=== PATIENT | female | born 1930 | race Two or more races ===

== ENCOUNTER 2017-03-28 12:24 | Inpatient (IN) | payer OTHER, MEDICAID ==
[~2017-03-28] VITALS: Ht 149.9 cm; Wt 45.4 kg
[2017-03-28] MEDS ORDERED: METOPROLOL SUCC50 MG ORAL (12:38)
[2017-03-28] MEDS ORDERED: ASPIR 8181 MG ORAL (12:38)
[2017-03-28] MEDS ORDERED: ATORVASTATIN CA40 MG ORAL (12:38)
[2017-03-28] MEDS ORDERED: HYDRALAZINE HC100 MG ORAL (12:38)
[2017-03-28] MEDS ORDERED: DIOVAN320 MG ORAL (12:38)
[2017-03-28] MEDS ORDERED: AZITHROMYCIN600 MG ORAL (12:38)
[2017-03-28] MEDS ORDERED: VENTOLIN HFA18 GM INH (12:38)
[2017-03-28 13:39] VITALS: BP 165/48
--- NOTE | 2017-03-28 13:48 | Diagnostic Imaging Report ---
Indication: Chest pain Technique: One view of the chest Comparison: none Findings: The heart is enlarged. There is equivocal mild interstitial congestion. No focal airspace consolidation. No effusion Impression: Cardiomegaly. Equivocal mild interstitial congestion-correlate clinically
[2017-03-28 13:57] LABS: APPEARANCE,URINE CLEAR; BILIRUBIN, URINE NEGATIVE (NEGATIVE); GLUCOSE, URINE (UA) NEGATIVE (NEGATIVE); KETONES,URINE 1+ (NEGATIVE); LEUKOCYTE ESTERASE ,URINE 1+ (NEGATIVE); NITRITE,URINE NEGATIVE (NEGATIVE); PH,URINE 6 (4.5-8.0); PROTEIN,URINE 4+ (NEGATIVE); UROBILINOGEN,URINE NORMAL MG/DL (0.0-1.0)
[2017-03-28 13:59] LABS: COLOR,URINE YELLOW
[2017-03-28 14:02] LABS: HEMATOCRIT 37.1 % (37.0-47.0); HEMOGLOBIN 12.6 G/DL (12.0-16.0); MEAN CORPUSCULAR VOLUME 88 FL (80-99); PLATELET COUNT 221 K/UL (150-450); RED CELL DISTRIBUTION WIDTH 11.8 % (11.6-14.8); WHITE BLOOD COUNT 2.1 K/UL (4.8-10.8)
[2017-03-28 14:14] LABS: ANION GAP 7 mmol/L (5-15); BLOOD UREA NITROGEN 13 mg/dL (7-18); CALCIUM 8.7 MG/DL (8.5-10.1); CARBON DIOXIDE 26 MMOL/L (21-32); CHLORIDE 89 MMOL/L (98-107); CREATININE 0.9 MG/DL (0.55-1.30); POTASSIUM 3.5 MMOL/L (3.5-5.1); SODIUM 122 MMOL/L (136-145)
[2017-03-28 14:21] LABS: ALANINE AMINOTRANSFERASE 39 U/L (12-78); ALBUMIN 3.5 G/DL (3.4-5.0); ALBUMIN/GLOBULIN RATIO 0.7 (1.0-2.7); ALKALINE PHOSPHATASE 81 U/L (46-116); ASPARTATE AMINO TRANSFERASE 58 U/L (15-37); BILIRUBIN,TOTAL 0.5 MG/DL (0.2-1.0); CREATINE KINASE 151 U/L (26-308)
[2017-03-28 14:40] VITALS: BP 166/45
[2017-03-28 14:42] LABS: CKMB 0.9 NG/ML (0.0-3.6)
[2017-03-28 16:00] VITALS: BP 159/54
--- NOTE | 2017-03-28 16:23 | Emergency Room Report ---
History of Present Illness General Chief Complaint: General Complaint Source: Patient, Family Member Present Illness HPI 86-year-old female presents ED for evaluation. Presenting with cough and congestion times one week. Feeling weak. Denies fevers or chills. Denies chest pain. Feel short of breath at times. Denies leg swelling. Denies sick contacts or recent travel. No other aggravating or relieving factors. Denies any other associated symptoms Allergies: Coded Allergies: PENICILLINS (Verified Allergy, Unknown, 03/28/17) Patient History Past Medical History: HTN, asthma Past Surgical History: none Pertinent Family History: none Social History: Denies: smoking, alcohol use, drug use Now: No Immunizations: UTD Reviewed Nursing Documentation: PMH: Agreed, PSxH: Agreed Nursing Documentation-PMH Hx Hypertension: Yes Hx Asthma: Yes Review of Systems All Other Systems: negative except mentioned in HPI Physical Exam Vital Signs Date Time Temp Pulse Resp B/P (MAP) Pulse Ox O2 Delivery O2 Flow Rate FiO2 03/28/17 12:31 99.0 62 18 150/64 96 Room Air Sp02 EP Interpretation: reviewed, normal General Appearance: no apparent distress, alert, GCS 15, non-toxic Head: normocephalic Eyes: bilateral eye normal inspection, bilateral eye PERRL ENT: normal ENT inspection Neck: normal inspection Respiratory: crackles Cardiovascular #1: regular rate, rhythm, no edema Gastrointestinal: normal bowel sounds, non tender, soft, non-distended, no guarding, no rebound Rectal: deferred Genitourinary: no CVA tenderness Musculoskeletal: normal inspection Neurologic: alert, oriented x3, responsive, motor strength/tone normal, sensory intact, speech normal Psychiatric: normal inspection Skin: normal inspection Lymphatic: normal inspection Medical Decision Making Diagnostic Impression: Primary Impression: Hyponatremia Additional Impressions: CHF (congestive heart failure) Qualified Codes: I50.9 - Heart failure, unspecified Elevated troponin Leukopenia Qualified Codes: D72.819 - Decreased white blood cell count, unspecified ER Course Hospital Course 86-year-old female presents ED complaining of shortness of breath, cough, congestion Differential diagnoses include: IL/unstable angina, contusion, muscle strain, PTX, rib fracture Clinical course Patient placed on stretcher. on cardiac monitor technician. After initial history and physical I ordered labs, EKG, chest x-ray labs reviewed- leukopenia noted, hemoglobin/hematocrit stable, troponins 0.452, BNP elevated, Na 122 EKG - NSR, no acute ischemic changes interpreted by me Chest x-ray- pulmonary congestion She denies chest pain. Aspirin given. Antibiotics given. Lasix given. Case discussed with Dr. Montes De Oca and he agreed to accept the patient to his service for further care and support I. I feel this is a highly complex case requiring extensive working including EKG/Rhythm strip, Xray/CT/US, Blood/urine lab work, repeat exams while in ED, and administration of strong opiates/narcotics for pain control, admission to hospital or close patient follow up. Diagnosis - hyponatremia, CHF, elevated troponin, leukopenia admitted to telemetry in serious condition Labs Test 03/28/17 13:15 03/28/17 13:25 Urine Color Yellow Urine Appearance Clear Urine pH 6 (4.5-8.0) Urine Specific [place] 1.020 (1.005-1.035) Urine Protein 4+ (NEGATIVE) Urine Glucose (UA) Negative (NEGATIVE) Urine Ketones 1+ (NEGATIVE) Urine Occult Blood Negative (NEGATIVE) Urine Nitrite Negative (NEGATIVE) Urine Bilirubin Negative (NEGATIVE) Urine Urobilinogen Normal MG/DL (0.0-1.0) Urine Leukocyte Esterase 1+ (NEGATIVE) Urine RBC 0-2 /HPF (0 - 2) Urine WBC 2-4 /HPF (0 - 2) Urine Squamous Epithelial Cells Few /LPF (NONE/OCC) Urine Bacteria Occasional /HPF (NONE) Urine Mucus Few /LPF (NONE/OCC) White Blood Count 2.1 K/UL (4.8-10.8) Red Blood Count 4.20 M/UL (4.20-5.40) Hemoglobin 12.6 G/DL (12.0-16.0) Hematocrit 37.1 % (37.0-47.0) Mean Corpuscular Volume 88 FL (80-99) Mean Corpuscular Hemoglobin 29.9 PG (27.0-31.0) Mean Corpuscular Hemoglobin Concent 33.8 G/DL (32.0-36.0) Red Cell Distribution Width 11.8 % (11.6-14.8) Platelet Count 221 K/UL (150-450) Mean Platelet Volume 5.6 FL (6.5-10.1) Neutrophils (%) (Auto) % (45.0-75.0) Lymphocytes (%) (Auto) % (20.0-45.0) Monocytes (%) (Auto) % (1.0-10.0) Eosinophils (%) (Auto) % (0.0-3.0) Basophils (%) (Auto) % (0.0-2.0) Differential Total Cells Counted 100 Neutrophils % (Manual) 49 % (45-75) Lymphocytes % (Manual) 44 % (20-45) Monocytes % (Manual) 7 % (1-10) Eosinophils % (Manual) 0 % (0-3) Basophils % (Manual) 0 % (0-2) Band Neutrophils 0 % (0-8) Platelet Estimate Adequate Platelet Morphology Normal Red Blood Cell Morphology Hypochromasia 1+ Sodium Level 122 MMOL/L (136-145) Potassium Level 3.5 MMOL/L (3.5-5.1) Chloride Level 89 MMOL/L (98-107) Carbon Dioxide Level 26 MMOL/L (21-32) Anion Gap 7 mmol/L (5-15) Blood Urea Nitrogen 13 mg/dL (7-18) Creatinine 0.9 MG/DL (0.55-1.30) Estimat Glomerular Filtration Rate mL/min (>60) Glucose Level 110 MG/DL (74-106) Lactic Acid Level 1.40 mmol/L (0.66-2.22) Calcium Level 8.7 MG/DL (8.5-10.1) Total Bilirubin 0.5 MG/DL (0.2-1.0) Aspartate Amino Transf (AST/SGOT) 58 U/L (15-37) Alanine Aminotransferase (ALT/SGPT) 39 U/L (12-78) Alkaline Phosphatase 81 U/L (46-116) Total Creatine Kinase 151 U/L (26-308) Creatine Kinase MB 0.9 NG/ML (0.0-3.6) Creatine Kinase MB Relative Index 0.5 Troponin I 0.452 ng/mL (0.000-0.056) Pro-B-Type Natriuretic Peptide 55941 pg/mL (0-125) Total Protein 8.4 G/DL (6.4-8.2) Albumin 3.5 G/DL (3.4-5.0) Globulin 4.9 g/dL Albumin/Globulin Ratio 0.7 (1.0-2.7) Lipase 308 U/L (73-393) EKG Diagnostic Results Rate: normal Rhythm: NSR ST Segments: no acute changes ASA given to the pt in ED: Yes Rhythm Strip Diag. Results EP Interpretation: yes Rhythm: NSR, no PVC's, no ectopy Chest X-Ray Diagnostic Results Chest X-Ray Diagnostic Results : Chest X-Ray Ordered: Yes # of Views/Limited/Complete: 1 View Indication: Shortness of Breath EP Interpretation: Yes Interpretation: no pneumothorax, other - cardiomegaly. interstitial congestion Impression: Other - cardiomegaly. chf Electronically Signed by: Electronically signed by Luis Armando Paige MD Last Vital Signs Date Time Temp Pulse Resp B/P (MAP) Pulse Ox O2 Delivery O2 Flow Rate FiO2 03/28/17 14:40 97.6 57 12 166/45 99 Room Air Status: improved Disposition: ADMITTED INPATIENT Condition: Serious Referrals: NON PHYSICIAN (PCP) LUIS ARMANDO PAIGE M.D. Mar 28, 2017 16:23
--- NOTE | 2017-03-28 16:39 | History & Physical ---
History and Physical History & Physicial 86-year-old female presents with cough and congestion times one week. Patient Feeling weak. Denies fevers or chills. Denies chest pain. She notes some short of breath at times. Denies leg swelling. Denies sick contacts or recent travel. No other aggravating or relieving factors. Denies any other associated symptoms Allergies: PENICILLINS (Verified Allergy, Unknown, 03/28/17) Past Medical History: HTN, asthma Past Surgical History: none Pertinent Family History: none Social History: Denies: smoking, alcohol use, drug use Reviewed of systems: reviewed Physical WDWN NAD some rhonchi bilaterally with reduced breath sounds [id number] without MRG NABS nontender no HSM no CCE nonfocal Labs Test 03/28/17 13:15 03/28/17 13:25 Urine Color Yellow Urine Appearance Clear Urine pH 6 (4.5-8.0) Urine Specific [place] 1.020 (1.005-1.035) Urine Protein 4+ (NEGATIVE) Urine Glucose (UA) Negative (NEGATIVE) Urine Ketones 1+ (NEGATIVE) Urine Occult Blood Negative (NEGATIVE) Urine Nitrite Negative (NEGATIVE) Urine Bilirubin Negative (NEGATIVE) Urine Urobilinogen Normal MG/DL (0.0-1.0) Urine Leukocyte Esterase 1+ (NEGATIVE) Urine RBC 0-2 /HPF (0 - 2) Urine WBC 2-4 /HPF (0 - 2) Urine Squamous Epithelial Cells Few /LPF (NONE/OCC) Urine Bacteria Occasional /HPF (NONE) Urine Mucus Few /LPF (NONE/OCC) White Blood Count 2.1 K/UL (4.8-10.8) Red Blood Count 4.20 M/UL (4.20-5.40) Hemoglobin 12.6 G/DL (12.0-16.0) Hematocrit 37.1 % (37.0-47.0) Mean Corpuscular Volume 88 FL (80-99) Mean Corpuscular Hemoglobin 29.9 PG (27.0-31.0) Mean Corpuscular Hemoglobin Concent 33.8 G/DL (32.0-36.0) Red Cell Distribution Width 11.8 % (11.6-14.8) Platelet Count 221 K/UL (150-450) Mean Platelet Volume 5.6 FL (6.5-10.1) Neutrophils (%) (Auto) % (45.0-75.0) Lymphocytes (%) (Auto) % (20.0-45.0) Monocytes (%) (Auto) % (1.0-10.0) Eosinophils (%) (Auto) % (0.0-3.0) Basophils (%) (Auto) % (0.0-2.0) Differential Total Cells Counted 100 Neutrophils % (Manual) 49 % (45-75) Lymphocytes % (Manual) 44 % (20-45) Monocytes % (Manual) 7 % (1-10) Eosinophils % (Manual) 0 % (0-3) Basophils % (Manual) 0 % (0-2) Band Neutrophils 0 % (0-8) Platelet Estimate Adequate Platelet Morphology Normal Red Blood Cell Morphology Hypochromasia 1+ Sodium Level 122 MMOL/L (136-145) Potassium Level 3.5 MMOL/L (3.5-5.1) Chloride Level 89 MMOL/L (98-107) Carbon Dioxide Level 26 MMOL/L (21-32) Anion Gap 7 mmol/L (5-15) Blood Urea Nitrogen 13 mg/dL (7-18) Creatinine 0.9 MG/DL (0.55-1.30) Estimat Glomerular Filtration Rate mL/min (>60) Glucose Level 110 MG/DL (74-106) Lactic Acid Level 1.40 mmol/L (0.66-2.22) Calcium Level 8.7 MG/DL (8.5-10.1) Total Bilirubin 0.5 MG/DL (0.2-1.0) Aspartate Amino Transf (AST/SGOT) 58 U/L (15-37) Alanine Aminotransferase (ALT/SGPT) 39 U/L (12-78) Alkaline Phosphatase 81 U/L (46-116) Total Creatine Kinase 151 U/L (26-308) Creatine Kinase MB 0.9 NG/ML (0.0-3.6) Creatine Kinase MB Relative Index 0.5 Troponin I 0.452 ng/mL (0.000-0.056) Pro-B-Type Natriuretic Peptide 23737 pg/mL (0-125) Total Protein 8.4 G/DL (6.4-8.2) Albumin 3.5 G/DL (3.4-5.0) Globulin 4.9 g/dL Albumin/Globulin Ratio 0.7 (1.0-2.7) Lipase 308 U/L (73-393) IMPRESSION Hyponatremia cardiomegaly leukopenia pulmonary congestion PLAN iv hydration iv antibiotics monitor WBC tylenol follow up labs impression, plan, and exam edited and reviewed in detail care discussed with BILLY TRUJILLO Mar 28, 2017 16:39
[2017-03-28] MEDS ORDERED: cefTRIAXone 1 GM in D5W 55 ML IVPB SCH (16:45)
[2017-03-28 17:50] VITALS: BP 137/83
[2017-03-28 20:00] VITALS: BP 160/73
[2017-03-28] MEDS: Albuterol ud Inhalation HHN SCH (20:06)
[2017-03-28] MEDS: Heparin 5000 units/ml inj SUBQ SCH (20:46)
[2017-03-28] MEDS: Atorvastatin 80mg tab ORAL SCH (20:52)
[2017-03-29] VITALS: BP 138/54
[2017-03-29] MEDS: Albuterol ud Inhalation HHN SCH ×7 (00:04→23:19)
[2017-03-29 04:00] VITALS: BP 142/64
[2017-03-29 08:00] VITALS: BP 136/66
[2017-03-29] MEDS: Aspirin EC 81mg tab ORAL SCH (08:17)
[2017-03-29] MEDS: Metoprolol Succinate XL 50mg tab ORAL SCH (08:18)
--- NOTE | 2017-03-29 08:21 | General Progress Note ---
Assessment/Plan Assessment/Plan IMPRESSION Hyponatremia cardiomegaly leukopenia pulmonary congestion influenza + PLAN monitor sodium tamiflu isolation iv hydration iv antibiotics monitor WBC tylenol follow up labs impression, plan, and exam Subjective Allergies: Coded Allergies: INFLUENZA VIRUS VACCINES (Verified Allergy, Intermediate, 03/29/17) Pt. states, "I always end up getting the flu every time I take a flu vaccine." PENICILLINS (Verified Allergy, Unknown, 03/28/17) Subjective flu positive Objective Last 24 Hour Vital Signs Date Time Temp Pulse Resp B/P (MAP) Pulse Ox O2 Delivery O2 Flow Rate FiO2 03/29/17 08:18 73 136/66 03/29/17 08:00 98.2 73 18 136/66 97 Room Air 03/29/17 07:46 72 16 95 Room Air 21 03/29/17 04:00 61 16 98 Room Air 21 03/29/17 04:00 96.8 65 18 142/64 97 Room Air 03/29/17 04:00 60 16 94 Room Air 21 03/29/17 04:00 64 03/29/17 00:07 60 16 Room Air 21 03/29/17 00:00 63 16 97 Room Air 21 03/29/17 00:00 58 03/29/17 00:00 96.6 58 18 138/54 98 Room Air 03/29/17 00:00 58 16 95 Room Air 21 03/28/17 20:00 60 16 97 Room Air 21 03/28/17 20:00 97.4 56 19 160/73 96 Room Air 03/28/17 20:00 53 03/28/17 20:00 62 16 98 Room Air 21 03/28/17 17:50 98.2 95 19 137/83 97 03/28/17 17:27 57 03/28/17 17:00 65 16 136/52 99 Room Air 03/28/17 14:40 97.6 57 12 166/45 99 Room Air 03/28/17 13:39 98.6 65 12 165/48 99 Room Air 03/28/17 13:15 65 12 Room Air 03/28/17 12:31 99.0 62 18 150/64 96 Room Air Intake and Output 03/28/17 03/29/17 19:00 07:00 Intake Total 30 ml 1183 ml Output Total 300 ml Balance 30 ml 883 ml Intake IV Total 30 ml 1183 ml Output Urine Total 300 ml # Voids 1 Laboratory Tests 03/28/17 13:15: Urine Color Yellow, Urine Appearance Clear, Urine pH 6, Urine Specific [place] 1.020, Urine Protein 4+H, Urine Glucose (UA) Negative, Urine Ketones 1+H, Urine Occult Blood Negative, Urine Nitrite Negative, Urine Bilirubin Negative, Urine Urobilinogen Normal, Urine Leukocyte Esterase 1+H, Urine RBC 0-2, Urine WBC 2-4 , Urine Squamous Epithelial Cells Few, Urine Bacteria Occasional, Urine Mucus FewH 03/28/17 13:25: White Blood Count 2.1*L, Red Blood Count 4.20, Hemoglobin 12.6, Hematocrit 37.1 , Mean Corpuscular Volume 88, Mean Corpuscular Hemoglobin 29.9, Mean Corpuscular Hemoglobin Concent 33.8, Red Cell Distribution Width 11.8, Platelet Count 221, Mean Platelet Volume 5.6L, Neutrophils (%) (Auto) , Lymphocytes (%) ( Auto) , Monocytes (%) (Auto) , Eosinophils (%) (Auto) , Basophils (%) (Auto) , Differential Total Cells Counted 100, Neutrophils % (Manual) 49, Lymphocytes % ( Manual) 44, Monocytes % (Manual) 7, Eosinophils % (Manual) 0, Basophils % ( Manual) 0, Band Neutrophils 0, Platelet Estimate Adequate, Platelet Morphology Normal, Red Blood Cell Morphology , Hypochromasia 1+, Sodium Level 122L, Potassium Level 3.5, Chloride Level 89L, Carbon Dioxide Level 26, Anion Gap 7, Blood Urea Nitrogen 13, Creatinine 0.9, Estimat Glomerular Filtration Rate , Glucose Level 110H, Lactic Acid Level 1.40, Calcium Level 8.7, Total Bilirubin 0.5, Aspartate Amino Transf (AST/SGOT) 58H, Alanine Aminotransferase (ALT/SGPT) 39, Alkaline Phosphatase 81, Total Creatine Kinase 151, Creatine Kinase MB 0.9, Creatine Kinase MB Relative Index 0.5, Troponin I 0.452H, Pro-B-Type Natriuretic Peptide 77744G, Total Protein 8.4H, Albumin 3.5, Globulin 4.9, Albumin/Globulin Ratio 0.7L, Lipase 308 Height (Feet): 4 Height (Inches): 11.00 Weight (Pounds): 100 Objective WDWN NAD some rhonchi [id number] without MRG NABS nontender no HSM no CCE nonfocal BILLY STRONG Mar 29, 2017 08:21
[2017-03-29] MEDS: Heparin 5000 units/ml inj SUBQ SCH ×2 (08:22→20:53)
[2017-03-29] MEDS ORDERED: Levofloxacin 500mg tab ORAL SCH (09:00)
[2017-03-29 09:21] LABS: HEMOGLOBIN 12.3 G/DL (12.0-16.0); MEAN CORPUSCULAR VOLUME 88 FL (80-99); PLATELET COUNT 204 K/UL (150-450); RED BLOOD COUNT 4.11 M/UL (4.20-5.40); RED CELL DISTRIBUTION WIDTH 11.6 % (11.6-14.8)
[2017-03-29 09:32] LABS: WHITE BLOOD COUNT 2.1 K/UL (4.8-10.8)
[2017-03-29 09:41] LABS: ANION GAP 7 mmol/L (5-15); BLOOD UREA NITROGEN 12 mg/dL (7-18); CALCIUM 8.1 MG/DL (8.5-10.1); CARBON DIOXIDE 26 MMOL/L (21-32); CHLORIDE 89 MMOL/L (98-107); CREATININE 0.8 MG/DL (0.55-1.30); SODIUM 122 MMOL/L (136-145)
[2017-03-29 12:00] VITALS: BP 138/57
[2017-03-29 16:00] VITALS: BP 144/62
--- NOTE | 2017-03-29 16:11 | Physician Query ---
--------- THIS DOCUMENT IS A PERMANENT PART OF THE MEDICAL RECORD --------- PLEASE COMPLETE THE DOCUMENT BEFORE SIGNING Dear BILLY Grimaldo Date: 03/29/17 Investigations Director/CDS Name: Maria Guadalupe Boyer Investigations Director / CDS Phone #[phone] Exercise your independent professional judgment when responding to query. Question asked do not imply a particular answer is desired/expected Clinical Documentation States: "Cardiomegaly, Pulmonary congestion" documented in H & P (03/28/17) "some rhonchi bilaterally with reduced breath sounds" Clinical Findings Show: VS: HR - 62, 65 BP - 150/64, 165/48 BNP __12088__ Diuretic _IV_Lasix 20 mg __ Please clarify, if any condition from the list correlates with clinical findings , mentioned above, if known: Acuity [x] Acute [] Chronic [] Acute on Chronic Type [] Systolic [] Diastolic [] Systolic & Diastolic (Combined) [] Left Heart failure [] Other: Etiology [] CHF due to Hypertension [] Cardiomyopathy [] Valvular Heart Disease [] Coronary Artery Disease [x] Unable to determine [] Other: Condition Present on Admission: [] Yes [] No [x]Clinically Undeterminable Please also document in your Progress Notes and/or Discharge Summary and indicate if the condition was present on admission. Dr. BILLY STRONG Date/Time MTDD
--- NOTE | 2017-03-29 19:00 | Consultation ---
DATE OF CONSULTATION: NEPHROLOGY CONSULTATION CONSULTING PHYSICIAN: Misha Duong M.D. ATTENDING PHYSICIAN: Oswald Carbajal M.D. REASON FOR CONSULTATION: Hyponatremia. HISTORY OF PRESENT ILLNESS: This is an 86-year-old female who was admitted to the ER with cough and congestion. The patient was found to be hyponatremic and for this reason, I am asked to see the patient. PAST MEDICAL HISTORY: 1. Hypertensive cardiovascular disease. 2. COPD. MEDICATIONS: 00:37 albuterol inhaler, baby aspirin, atorvastatin, Zithromax, hydralazine, metoprolol, valsartan. ALLERGIES: Influenza vaccine and penicillin. FAMILY HISTORY: Unremarkable. SOCIAL HISTORY: She lives at home. HABITS: She is nonsmoker and nondrinker. There is no history of illicit drug abuse. REVIEW OF SYSTEMS: HEENT: Hearing and eyesight are normal. ENDOCRINE: No history of diabetes, thyroid, or adrenal problems. RESPIRATORY: Please refer to history of present illness. CARDIOVASCULAR: She denies chest pain or palpitations. GASTROINTESTINAL: No history of hematochezia, melena, hematemesis, diarrhea, or constipation. GENITOURINARY: Denies dysuria, frequency, urgency, or hematuria. NEUROLOGIC: No history of stroke, syncope, or Parkinson disease. PHYSICAL EXAMINATION: GENERAL: This is an elderly petite female, in no acute distress. VITAL SIGNS: Blood pressure 136/66, pulse 73, regular, respirations 18, and temperature 98.2 degrees. HEENT: The head is normocephalic and atraumatic. Pupils are equal, round, and reactive to light accommodation consensually. NECK: Supple. Trachea midline. There was no lymphadenopathy or thyromegaly. LUNGS: Bilateral wheezes. HEART: Regular rate and rhythm without rubs, murmurs, or gallops. ABDOMEN: Soft and nontender. Bowel sounds were active. EXTREMITIES: No clubbing, cyanosis, or edema. NEUROLOGICAL: She is alert and oriented x4. Cranial nerves II through XII intact. LABORATORY AND ANCILLARY DATA: On admission, CBC shows white count 2100, otherwise within normal limits. Serum chemistry on admission, sodium 122, chloride 89. Pro B-natriuretic peptide 12,088. Urinalysis on admission, notably urine specific gravity was within normal limits. ASSESSMENT: 1. Hyponatremia, most likely of chronic basis since the urine specific gravity is within normal limit, most likely due to valsartan that the patient was taking. 2. Hypertensive cardiovascular disease. 3. Chronic obstructive pulmonary disease. PLAN: 1. Advised to discontinue valsartan and not renew. 2. No indication for aggressive correction of hyponatremia, but rather slow correction. Thank you, Dr. Carbajal, for letting me to participate in the care of this patient. Misha Duong M.D. DR: Boom JOB#: [id number] CC:
[2017-03-29 20:00] VITALS: BP 163/67
[2017-03-29] MEDS: Atorvastatin 80mg tab ORAL SCH (20:51)
[2017-03-30] VITALS: BP 153/65
[2017-03-30] MEDS: Albuterol ud Inhalation HHN SCH ×6 (03:30→23:10)
[2017-03-30 04:00] VITALS: BP 135/60
[2017-03-30 08:00] VITALS: BP 144/52
--- NOTE | 2017-03-30 08:34 | General Progress Note ---
Assessment/Plan Assessment/Plan IMPRESSION Hyponatremia cardiomegaly leukopenia pulmonary congestion influenza + PLAN monitor sodium; still low tamiflu isolation iv hydration iv antibiotics monitor WBC and hope to see improvement tylenol follow up labs impression, plan, and exam Subjective Allergies: Coded Allergies: INFLUENZA VIRUS VACCINES (Verified Allergy, Intermediate, 03/29/17) Pt. states, "I always end up getting the flu every time I take a flu vaccine." PENICILLINS (Verified Allergy, Unknown, 03/28/17) Subjective flu positive Objective Last 24 Hour Vital Signs Date Time Temp Pulse Resp B/P (MAP) Pulse Ox O2 Delivery O2 Flow Rate FiO2 03/30/17 08:23 Room Air 03/30/17 08:22 Room Air 03/30/17 04:00 85 03/30/17 04:00 98.4 87 20 135/60 97 Room Air 03/30/17 03:40 68 16 99 Room Air 21 03/30/17 03:30 66 16 97 Room Air 21 03/30/17 00:00 85 03/30/17 00:00 98.6 91 20 153/65 100 Room Air 03/29/17 23:27 70 16 99 Room Air 21 03/29/17 23:19 74 16 96 Room Air 21 03/29/17 20:00 71 03/29/17 20:00 99.0 81 20 163/67 95 Room Air 03/29/17 19:59 73 16 99 Room Air 21 03/29/17 19:51 69 16 96 Room Air 21 03/29/17 16:00 78 03/29/17 16:00 98.0 70 19 144/62 98 Room Air 03/29/17 15:51 72 16 99 Room Air 21 03/29/17 15:42 73 16 94 Room Air 21 03/29/17 12:00 97.9 79 20 138/57 97 Room Air 03/29/17 12:00 85 03/29/17 11:14 69 16 99 Room Air 21 03/29/17 11:05 70 16 93 Room Air 21 Intake and Output 03/29/17 03/30/17 19:00 07:00 Intake Total 1900 ml 1308 ml Output Total 700 ml Balance 1200 ml 1308 ml Intake Oral 700 ml 120 ml IV Total 1200 ml 1188 ml Output Urine Total 700 ml # Voids 1 4 Laboratory Tests 03/29/17 10:40: Urine Osmolality 531H Height (Feet): 4 Height (Inches): 11.00 Weight (Pounds): 100 Objective WDWN NAD some rhonchi [id number] without MRG NABS nontender no HSM no CCE nonfocal BILLY STRONG Mar 30, 2017 08:34
--- NOTE | 2017-03-30 08:46 | Nephrology Progress Note ---
Assessment/Plan Plan COPD better Hyponatremia - m/p secondary to ARB. Check Na. Subjective Subjective No new c/o Objective Objective Last 24 Hour Vital Signs Date Time Temp Pulse Resp B/P (MAP) Pulse Ox O2 Delivery O2 Flow Rate FiO2 03/30/17 08:23 Room Air 03/30/17 08:22 Room Air 03/30/17 04:00 85 03/30/17 04:00 98.4 87 20 135/60 97 Room Air 03/30/17 03:40 68 16 99 Room Air 21 03/30/17 03:30 66 16 97 Room Air 21 03/30/17 00:00 85 03/30/17 00:00 98.6 91 20 153/65 100 Room Air 03/29/17 23:27 70 16 99 Room Air 21 03/29/17 23:19 74 16 96 Room Air 21 03/29/17 20:00 71 03/29/17 20:00 99.0 81 20 163/67 95 Room Air 03/29/17 19:59 73 16 99 Room Air 21 03/29/17 19:51 69 16 96 Room Air 21 03/29/17 16:00 78 03/29/17 16:00 98.0 70 19 144/62 98 Room Air 03/29/17 15:51 72 16 99 Room Air 21 03/29/17 15:42 73 16 94 Room Air 21 03/29/17 12:00 97.9 79 20 138/57 97 Room Air 03/29/17 12:00 85 03/29/17 11:14 69 16 99 Room Air 21 03/29/17 11:05 70 16 93 Room Air 21 Intake and Output 03/29/17 03/30/17 19:00 07:00 Intake Total 1900 ml 1308 ml Output Total 700 ml Balance 1200 ml 1308 ml Intake Oral 700 ml 120 ml IV Total 1200 ml 1188 ml Output Urine Total 700 ml # Voids 1 4 Laboratory Tests 03/29/17 10:40: Urine Osmolality 531H Height (Feet): 4 Height (Inches): 11.00 Weight (Pounds): 100 Objective Cv RR lungs CTA Abd SNt. BS + E No CCE ELKE DOWNS Mar 30, 2017 08:46
[2017-03-30] MEDS: Metoprolol Succinate XL 50mg tab ORAL SCH (09:45)
[2017-03-30] MEDS: Aspirin EC 81mg tab ORAL SCH (09:45)
[2017-03-30] MEDS: Heparin 5000 units/ml inj SUBQ SCH ×2 (09:47→20:54)
[2017-03-30 11:34] LABS: HEMATOCRIT 31.5 % (37.0-47.0); HEMOGLOBIN 10.8 G/DL (12.0-16.0); MEAN CORPUSCULAR VOLUME 88 FL (80-99); PLATELET COUNT 167 K/UL (150-450); RED BLOOD COUNT 3.58 M/UL (4.20-5.40); RED CELL DISTRIBUTION WIDTH 11.4 % (11.6-14.8)
[2017-03-30 11:40] LABS: WHITE BLOOD COUNT 1.8 K/UL (4.8-10.8)
[2017-03-30 11:58] LABS: ANION GAP 5 mmol/L (5-15); BLOOD UREA NITROGEN 6 mg/dL (7-18); CALCIUM 7.4 MG/DL (8.5-10.1); CARBON DIOXIDE 25 MMOL/L (21-32); CHLORIDE 94 MMOL/L (98-107); CREATININE 0.6 MG/DL (0.55-1.30); POTASSIUM 3.2 MMOL/L (3.5-5.1); SODIUM 124 MMOL/L (136-145)
[2017-03-30 12:00] VITALS: BP 144/57
--- NOTE | 2017-03-30 15:18 | Cardiology Report ---
APPROVED REPORT EKG Measurement Heart [id number] [place] [id number] [id number] Normal sinus rhythm Possible Left atrial enlargement Prolonged QT Abnormal ECG
[2017-03-30 16:00] VITALS: BP 187/77
[2017-03-30] MEDS: Irbesartan 150mg tablet ORAL SCH (17:19)
[2017-03-30] MEDS: HydrALAZINE 50mg tab ORAL SCH (17:19)
[2017-03-30 20:00] VITALS: BP 158/69
[2017-03-30] MEDS: Atorvastatin 80mg tab ORAL SCH (20:53)
[2017-03-31] VITALS: BP 142/58
[2017-03-31] MEDS: Albuterol ud Inhalation HHN SCH ×6 (03:35→23:25)
[2017-03-31 04:00] VITALS: BP 156/67
--- NOTE | 2017-03-31 07:51 | General Progress Note ---
Assessment/Plan Assessment/Plan IMPRESSION Hyponatremia cardiomegaly leukopenia pulmonary congestion influenza + hypertension PLAN monitor sodium; still low tamiflu isolation iv hydration dc antibiotics heme evaluation replace K monitor WBC and hope to see improvement tylenol follow up labs impression, plan, and exam Subjective Allergies: Coded Allergies: INFLUENZA VIRUS VACCINES (Verified Allergy, Intermediate, 03/29/17) Pt. states, "I always end up getting the flu every time I take a flu vaccine." PENICILLINS (Verified Allergy, Unknown, 03/28/17) Subjective flu positive labs not improving Objective Last 24 Hour Vital Signs Date Time Temp Pulse Resp B/P (MAP) Pulse Ox O2 Delivery O2 Flow Rate FiO2 03/31/17 06:42 65 18 99 Room Air 21 03/31/17 06:32 63 18 97 Room Air 21 03/31/17 04:00 66 03/31/17 04:00 97.5 69 18 156/67 99 Room Air 03/31/17 03:43 66 16 99 Room Air 21 03/31/17 03:35 67 16 98 Room Air 21 03/31/17 00:00 97.3 70 20 142/58 98 Room Air 03/31/17 00:00 80 03/30/17 23:19 64 16 99 Room Air 21 03/30/17 23:10 65 16 98 Room Air 21 03/30/17 20:00 97.9 72 18 158/69 100 Room Air 03/30/17 20:00 84 03/30/17 19:29 65 16 99 Room Air 21 03/30/17 19:21 66 16 98 Room Air 21 03/30/17 17:19 182/73 03/30/17 17:19 182/73 03/30/17 16:00 98.2 74 20 187/77 100 Room Air 03/30/17 16:00 73 03/30/17 14:54 64 18 100 Room Air 21 03/30/17 14:50 64 18 99 Room Air 21 03/30/17 12:00 97.8 68 20 144/57 98 Room Air 03/30/17 12:00 71 03/30/17 11:37 67 18 99 Room Air 21 03/30/17 11:27 68 18 99 Room Air 21 03/30/17 09:45 74 144/56 03/30/17 08:23 Room Air 03/30/17 08:22 Room Air 03/30/17 08:00 74 03/30/17 08:00 97.9 74 18 144/52 97 Room Air Intake and Output 03/30/17 03/31/17 19:00 07:00 Intake Total 940 ml 1337 ml Output Total 600 ml Balance 340 ml 1337 ml Intake Oral 940 ml 200 ml IV Total 1137 ml Output Urine Total 600 ml # Voids 3 # Bowel Movements 1 Laboratory Tests 03/30/17 10:30: White Blood Count 1.8*L, Red Blood Count 3.58L, Hemoglobin 10.8L, Hematocrit 31.5L, Mean Corpuscular Volume 88, Mean Corpuscular Hemoglobin 30.3, Mean Corpuscular Hemoglobin Concent 34.4, Red Cell Distribution Width 11.4L, Platelet Count 167, Mean Platelet Volume 5.8L, Neutrophils (%) (Auto) , Lymphocytes (%) (Auto) , Monocytes (%) (Auto) , Eosinophils (%) (Auto) , Basophils (%) (Auto) , Differential Total Cells Counted 100, Neutrophils % ( Manual) 35L, Lymphocytes % (Manual) 44, Monocytes % (Manual) 21H, Eosinophils % (Manual) 0, Basophils % (Manual) 0, Band Neutrophils 0, Platelet Estimate Adequate, Platelet Morphology Normal, Hypochromasia 1+, Sodium Level 124L, Potassium Level 3.2L, Chloride Level 94L, Carbon Dioxide Level 25, Anion Gap 5, Blood Urea Nitrogen 6L, Creatinine 0.6, Estimat Glomerular Filtration Rate , Glucose Level 97, Calcium Level 7.4L Height (Feet): 4 Height (Inches): 11.00 Weight (Pounds): 100 Objective WDWN NAD some rhonchi [id number] without MRG NABS nontender no HSM no CCE nonfocal BILLY STRONG Mar 31, 2017 07:51
[2017-03-31 08:00] VITALS: BP 164/56
[2017-03-31 08:25] LABS: HEMATOCRIT 35.1 % (37.0-47.0); HEMOGLOBIN 11.7 G/DL (12.0-16.0); MEAN CORPUSCULAR VOLUME 88 FL (80-99); PLATELET COUNT 202 K/UL (150-450); RED BLOOD COUNT 3.98 M/UL (4.20-5.40); RED CELL DISTRIBUTION WIDTH 12.1 % (11.6-14.8); WHITE BLOOD COUNT 2.2 K/UL (4.8-10.8)
[2017-03-31 09:31] LABS: ANION GAP 6 mmol/L (5-15); BLOOD UREA NITROGEN 4 mg/dL (7-18); CALCIUM 7.7 MG/DL (8.5-10.1); CARBON DIOXIDE 26 MMOL/L (21-32); CHLORIDE 99 MMOL/L (98-107); CREATININE 0.6 MG/DL (0.55-1.30); POTASSIUM 3.8 MMOL/L (3.5-5.1); SODIUM 131 MMOL/L (136-145)
[2017-03-31] MEDS: HydrALAZINE 50mg tab ORAL SCH ×3 (09:41→17:44)
[2017-03-31] MEDS: Aspirin EC 81mg tab ORAL SCH (09:42)
[2017-03-31] MEDS: Metoprolol Succinate XL 50mg tab ORAL SCH (09:42)
[2017-03-31] MEDS: Heparin 5000 units/ml inj SUBQ SCH ×2 (09:45→20:56)
[2017-03-31 12:00] VITALS: BP 160/74
--- NOTE | 2017-03-31 14:04 | Nephrology Progress Note ---
Assessment/Plan Plan COPD better Hyponatremia - m/p secondary to ARB. Eunatremic. Subjective Subjective No new c/o Objective Objective Last 24 Hour Vital Signs Date Time Temp Pulse Resp B/P (MAP) Pulse Ox O2 Delivery O2 Flow Rate FiO2 03/31/17 13:53 160/74 03/31/17 12:00 69 03/31/17 12:00 98.4 72 20 160/74 99 Room Air 03/31/17 11:59 68 18 99 Room Air 21 03/31/17 11:49 65 16 98 Room Air 21 03/31/17 09:42 72 164/56 03/31/17 09:41 164/56 03/31/17 08:00 97.0 72 20 164/56 99 Room Air 03/31/17 08:00 77 03/31/17 06:42 65 18 99 Room Air 21 03/31/17 06:32 63 18 97 Room Air 21 03/31/17 04:00 66 03/31/17 04:00 97.5 69 18 156/67 99 Room Air 03/31/17 03:43 66 16 99 Room Air 21 03/31/17 03:35 67 16 98 Room Air 21 03/31/17 00:00 97.3 70 20 142/58 98 Room Air 03/31/17 00:00 80 03/30/17 23:19 64 16 99 Room Air 21 03/30/17 23:10 65 16 98 Room Air 21 03/30/17 20:00 97.9 72 18 158/69 100 Room Air 03/30/17 20:00 84 03/30/17 19:29 65 16 99 Room Air 21 03/30/17 19:21 66 16 98 Room Air 21 03/30/17 17:19 182/73 03/30/17 17:19 182/73 03/30/17 16:00 98.2 74 20 187/77 100 Room Air 03/30/17 16:00 73 03/30/17 14:54 64 18 100 Room Air 21 03/30/17 14:50 64 18 99 Room Air 21 Intake and Output 03/30/17 03/31/17 19:00 07:00 Intake Total 940 ml 1337 ml Output Total 600 ml Balance 340 ml 1337 ml Intake Oral 940 ml 200 ml IV Total 1137 ml Output Urine Total 600 ml # Voids 3 # Bowel Movements 1 Laboratory Tests 03/31/17 07:20: White Blood Count 2.2L, Red Blood Count 3.98L, Hemoglobin 11.7L, Hematocrit 35.1L, Mean Corpuscular Volume 88, Mean Corpuscular Hemoglobin 29.5, Mean Corpuscular Hemoglobin Concent 33.5, Red Cell Distribution Width 12.1, Platelet Count 202, Mean Platelet Volume 5.7L, Neutrophils (%) (Auto) , Lymphocytes (%) ( Auto) , Monocytes (%) (Auto) , Eosinophils (%) (Auto) , Basophils (%) (Auto) , Differential Total Cells Counted 100, Neutrophils % (Manual) 37L, Lymphocytes % (Manual) 55H, Monocytes % (Manual) 8, Eosinophils % (Manual) 0, Basophils % ( Manual) 0, Band Neutrophils 0, Platelet Estimate Adequate, Platelet Morphology Normal, Hypochromasia 1+, Sodium Level 131L, Potassium Level 3.8, Chloride Level 99, Carbon Dioxide Level 26, Anion Gap 6, Blood Urea Nitrogen 4L, Creatinine 0.6, Estimat Glomerular Filtration Rate , Glucose Level 95, Calcium Level 7.7L, Troponin I 0.460H Height (Feet): 4 Height (Inches): 11.00 Weight (Pounds): 100 Objective Cv RR lungs CTA Abd SNt. BS + E No CCE ELKE DOWNS Mar 31, 2017 14:04
[2017-03-31 16:00] VITALS: BP 138/71
[2017-03-31 17:33] LABS: FERRITIN 465 NG/ML (8-388); LACTATE DEHYDROGENASE 262 U/L (81-234)
[2017-03-31] MEDS: Irbesartan 150mg tablet ORAL SCH (17:44)
[2017-03-31 17:50] LABS: % IRON SATURATION 21 % (15-50); IRON 35 ug/dL (50-175); TOTAL IRON BINDING CAPACITY 167 ug/dL (250-450)
[2017-03-31 20:00] VITALS: BP 134/68
[2017-03-31] MEDS: Atorvastatin 80mg tab ORAL SCH (20:54)
[2017-04-01] VITALS: BP 155/69
--- NOTE | 2017-04-01 01:15 | Consultation ---
DATE OF CONSULTATION: 03/31/2017 NOTE: POOR AUDIO HEMATOLOGY/ONCOLOGY CONSULTATION CONSULTING PHYSICIAN: Alvarez Coronel M.D. REQUESTING PHYSICIAN: Oswald Carbajal M.D. REASON FOR CONSULTATION: Evaluation of leukopenia. IDENTIFICATION DATA: Dear Dr. Carbajal, The patient is a pleasant 86-year-old female with past medical history significant for hypertensive heart disease and COPD, at this time presents to the ER of [facility] for congestion as well as cough for the past several weeks. No aggravating or alleviating features. The patient noted to be with leukopenia, which is new onset. Hematology Service was consulted for further evaluation and treatment. presented here prior records. PAST MEDICAL HISTORY: As noted above, hypertension and COPD. MEDICATIONS: Albuterol, aspirin, Lipitor, Zithromax, metoprolol, hydralazine, and valsartan. ALLERGIES: Vaccine and penicillin. SOCIAL HISTORY: Lives at home. HABITS: Nonsmoker and nondrinker. No illicit drug use. FAMILY HISTORY: Unremarkable. REVIEW OF SYSTEMS: CONSTITUTIONAL: No fevers, chills, or night sweats. SKIN: No rashes, bumps, or itching. HEENT: No headache, hearing or vision changes. BREASTS: No lumps, pain, or discharge. PULMONARY: No cough, sputum, or shortness of breath. GASTROINTESTINAL: No nausea, vomiting, or diarrhea. GENITOURINARY: No dysuria, frequency, or urgency. MUSCULOSKELETAL: No joint swelling, muscle pain, or trauma. PHYSICAL EXAMINATION: VITAL SIGNS: Reviewed. GENERAL: No acute distress. PULMONARY: Decreased breath sounds. CARDIOVASCULAR: Regular rate. No S3 or S4. ABDOMEN: Soft, nontender, and nondistended. EXTREMITIES: No cyanosis, swelling, or edema. LABORATORY DATA: WBC 3.3, hemoglobin 11.7, hematocrit 35, and platelet count ,000. Chemistry reviewed. BUN of and creatinine 0.6. Troponin 0.460. IMAGING: Chest x-ray reviewed, positive for mild interstitial congestion. ASSESSMENT AND RECOMMENDATIONS: 1. Leukopenia. Evaluate the patient for human immunodeficiency virus, hepatitis panel as well as ultrasound of the abdomen. May have splenomegaly. 2. Anemia due to underlying chronic disease. Continue to closely monitor. 3. Hyponatremia, closely monitor, likely secondary to ARB. Continue to check sodium. 4. Chronic obstructive pulmonary disease exacerbation, currently has improved. 5. Weakness, probably due to anemia. I appreciate the consultation. Alvarez Coronel M.D. DR: Gregoria JOB#: [id number] CC:
[2017-04-01] MEDS: Albuterol ud Inhalation HHN SCH ×6 (03:15→23:00)
[2017-04-01 04:00] VITALS: BP 149/65
[2017-04-01 07:15] LABS: HEMATOCRIT 35.3 % (37.0-47.0); HEMOGLOBIN 11.8 G/DL (12.0-16.0); MEAN CORPUSCULAR VOLUME 88 FL (80-99); PLATELET COUNT 237 K/UL (150-450); RED BLOOD COUNT 3.99 M/UL (4.20-5.40); RED CELL DISTRIBUTION WIDTH 11.9 % (11.6-14.8); WHITE BLOOD COUNT 2.5 K/UL (4.8-10.8)
[2017-04-01 07:28] LABS: ANION GAP 6 mmol/L (5-15); BLOOD UREA NITROGEN 4 mg/dL (7-18); CALCIUM 7.9 MG/DL (8.5-10.1); CARBON DIOXIDE 25 MMOL/L (21-32); CHLORIDE 97 MMOL/L (98-107); CREATININE 0.6 MG/DL (0.55-1.30); POTASSIUM 3.6 MMOL/L (3.5-5.1); SODIUM 128 MMOL/L (136-145)
[2017-04-01 08:00] VITALS: BP 167/67
[2017-04-01] MEDS: Aspirin EC 81mg tab ORAL SCH (09:12)
[2017-04-01] MEDS: Metoprolol Succinate XL 50mg tab ORAL SCH (09:13)
[2017-04-01] MEDS: HydrALAZINE 50mg tab ORAL SCH ×3 (09:13→16:54)
[2017-04-01] MEDS: Heparin 5000 units/ml inj SUBQ SCH ×2 (09:15→21:14)
--- NOTE | 2017-04-01 11:26 | General Progress Note ---
Assessment/Plan Assessment/Plan IMPRESSION Hyponatremia cardiomegaly leukopenia pulmonary congestion influenza + hypertension PLAN monitor sodium; still low tamiflu isolation iv hydration with NS hold antibiotics heme evaluation monitor WBC and hope to see improvement tylenol follow up labs impression, plan, and exam reviewed Subjective Allergies: Coded Allergies: INFLUENZA VIRUS VACCINES (Verified Allergy, Intermediate, 03/29/17) Pt. states, "I always end up getting the flu every time I take a flu vaccine." PENICILLINS (Verified Allergy, Unknown, 03/28/17) Subjective flu positive labs not improving sufficiently onc noted Objective Last 24 Hour Vital Signs Date Time Temp Pulse Resp B/P (MAP) Pulse Ox O2 Delivery O2 Flow Rate FiO2 04/01/17 10:58 67 18 100 Room Air 21 04/01/17 10:49 69 18 100 Room Air 21 04/01/17 10:49 64 16 Room Air 21 04/01/17 09:13 149/65 04/01/17 09:13 69 149/65 04/01/17 08:00 71 04/01/17 08:00 98.2 69 18 167/67 97 Room Air 21 04/01/17 07:09 69 20 100 Room Air 21 04/01/17 07:00 65 18 97 Room Air 21 04/01/17 04:00 70 04/01/17 04:00 97.2 72 18 149/65 99 Room Air 21 04/01/17 03:15 69 20 99 Room Air 21 04/01/17 03:10 68 18 100 Room Air 21 04/01/17 00:00 68 04/01/17 00:00 97.5 78 20 155/69 96 Room Air 21 03/31/17 23:32 68 20 99 Room Air 21 03/31/17 23:25 64 18 98 Room Air 21 03/31/17 20:00 97.3 72 18 134/68 99 Room Air 21 03/31/17 20:00 78 03/31/17 19:30 79 20 99 Room Air 21 03/31/17 19:19 77 18 98 Room Air 21 03/31/17 17:44 160/74 03/31/17 17:44 160/74 03/31/17 16:00 74 03/31/17 16:00 98.1 74 20 138/71 94 Room Air 03/31/17 14:30 69 20 99 Room Air 21 03/31/17 14:21 67 18 100 Room Air 21 03/31/17 13:53 160/74 03/31/17 12:00 69 03/31/17 12:00 98.4 72 20 160/74 99 Room Air 03/31/17 11:59 68 18 99 Room Air 21 03/31/17 11:49 65 16 98 Room Air 21 Intake and Output 03/31/17 04/01/17 19:00 07:00 Intake Total 592 ml 900 ml Output Total 300 ml Balance 592 ml 600 ml Intake Oral 592 ml IV Total 900 ml Output Urine Total 300 ml # Voids 6 # Bowel Movements 4 Laboratory Tests 03/31/17 18:00: Fibrinogen 319, Methylmalonic Acid [Pending], Hepatitis A IgM Antibody [Pending] , Hepatitis B Surface Antigen [Pending], Hepatitis B Core IgM Antibody [Pending] , Hepatitis C Antibody [Pending] 04/01/17 06:35: White Blood Count 2.5L, Red Blood Count 3.99L, Hemoglobin 11.8L, Hematocrit 35.3L, Mean Corpuscular Volume 88, Mean Corpuscular Hemoglobin 29.6, Mean Corpuscular Hemoglobin Concent 33.5, Red Cell Distribution Width 11.9, Platelet Count 237, Mean Platelet Volume 5.8L, Neutrophils (%) (Auto) , Lymphocytes (%) ( Auto) , Monocytes (%) (Auto) , Eosinophils (%) (Auto) , Basophils (%) (Auto) , Differential Total Cells Counted 100, Neutrophils % (Manual) 34L, Lymphocytes % (Manual) 55H, Monocytes % (Manual) 10, Eosinophils % (Manual) 1, Basophils % ( Manual) 0, Band Neutrophils 0, Platelet Estimate Adequate, Platelet Morphology Normal, Red Blood Cell Morphology Normal, Sodium Level 128L, Potassium Level 3.6 , Chloride Level 97L, Carbon Dioxide Level 25, Anion Gap 6, Blood Urea Nitrogen 4L, Creatinine 0.6, Estimat Glomerular Filtration Rate , Glucose Level 95, Calcium Level 7.9L Height (Feet): 4 Height (Inches): 11.00 Weight (Pounds): 100 Objective WDWN NAD some rhonchi [id number] without MRG NABS nontender no HSM no CCE nonfocal BILLY STRONG Apr 01, 2017 11:26
[2017-04-01 12:00] VITALS: BP 164/62
--- NOTE | 2017-04-01 13:44 | Diagnostic Imaging Report ---
Indication:Abdominal pain Technique: Grayscale and duplex Doppler imaging of the abdomen performed. Comparison: None Findings: The liver, demonstrated part of the pancreas, gallbladder, aorta and IVC, both kidneys, spleen appear unremarkable. There are small bilateral renal cysts. There is no biliary ductal dilatation identified. Doppler evaluation of the main portal vein shows patency. There is no ascites. No hydronephrosis seen. CBD is 4 mm. Impression: No acute findings.
[2017-04-01 16:00] VITALS: BP 160/69
[2017-04-01] MEDS: Irbesartan 150mg tablet ORAL SCH (16:54)
[2017-04-01 20:00] VITALS: BP 120/70
[2017-04-01] MEDS: Atorvastatin 80mg tab ORAL SCH (21:13)
[2017-04-02] VITALS (7 sets, daily range): BP systolic 142–169; BP diastolic 56–80
[2017-04-02] MEDS: Albuterol ud Inhalation HHN SCH ×6 (03:00→23:58)
--- NOTE | 2017-04-02 03:50 | General Progress Note ---
Assessment/Plan Assessment/Plan 1. Leukopenia. --> Evaluate the patient for human immunodeficiency virus, hepatitis panel as well as ultrasound of the abdomen. --> HIV and Hep panel were both negative --> S/P Abdomen Xray --> revealed small bilateral renal cysts --> Improving. 2. Anemia due to underlying chronic disease. --> Continue to closely monitor. --> Blood transfusion not required unless symptomatic or hgb <7 3. Hyponatremia, --> closely monitor, likely secondary to ARB. --> Continue to check sodium. 4. Chronic obstructive pulmonary disease exacerbation, currently has improved. 5. Weakness, probably due to anemia. Subjective Date patient seen: Apr 01, 2017 Constitutional: Denies: no symptoms, chills, diaphoresis, fever, malaise, weakness, other HEENT: Denies: no symptoms, eye pain, blurred vision, tearing, double vision, ear pain, ear discharge, nose pain, nose congestion, throat pain, throat swelling, mouth pain, mouth swelling, other Cardiovascular: Denies: no symptoms, chest pain, edema, irregular heart rate, lightheadedness, palpitations, syncope, other Respiratory: Denies: no symptoms, cough, orthopnea, shortness of breath, SOB with excertion, SOB at rest, sputum, stridor, wheezing, other Gastrointestinal/Abdominal: Denies: no symptoms, abdomen distended, abdominal pain, black stools, tarry stools, blood in stool, constipated, diarrhea, difficulty swallowing, nausea, poor appetite, poor fluid intake, rectal bleeding , vomiting, other Genitourinary: Denies: no symptoms, burning, discharge, frequency, flank pain, hematuria, incontinence, pain, urgency, other Hematologic/Lymphatic: Reports: anemia Allergies: Coded Allergies: INFLUENZA VIRUS VACCINES (Verified Allergy, Intermediate, 03/29/17) Pt. states, "I always end up getting the flu every time I take a flu vaccine." PENICILLINS (Verified Allergy, Unknown, 03/28/17) Subjective Wbc count low but improving. NAD. Objective Last 24 Hour Vital Signs Date Time Temp Pulse Resp B/P (MAP) Pulse Ox O2 Delivery O2 Flow Rate FiO2 04/02/17 03:22 Room Air 21 04/02/17 03:22 Room Air 21 04/02/17 00:00 97.0 68 21 152/63 100 Room Air 21 04/02/17 00:00 74 04/01/17 23:15 Room Air 21 04/01/17 23:15 Room Air 21 04/01/17 20:05 70 04/01/17 20:00 97.4 74 20 120/70 96 Room Air 21 04/01/17 19:21 86 16 100 Room Air 21 04/01/17 19:14 78 20 100 Room Air 21 04/01/17 16:54 160/69 04/01/17 16:54 160/69 04/01/17 16:00 96.4 65 20 160/69 100 Room Air 21 04/01/17 16:00 67 04/01/17 15:19 73 18 100 Room Air 21 04/01/17 15:10 74 18 100 Room Air 21 04/01/17 12:55 164/62 04/01/17 12:00 97.8 76 18 164/62 99 Room Air 21 04/01/17 12:00 73 04/01/17 10:58 67 18 100 Room Air 21 04/01/17 10:49 69 18 100 Room Air 21 04/01/17 10:49 64 16 Room Air 21 04/01/17 09:13 149/65 04/01/17 09:13 69 149/65 04/01/17 08:00 71 04/01/17 08:00 98.2 69 18 167/67 97 Room Air 21 04/01/17 07:09 69 20 100 Room Air 21 04/01/17 07:00 65 18 97 Room Air 21 04/01/17 04:00 70 04/01/17 04:00 97.2 72 18 149/65 99 Room Air 21 Intake and Output 04/01/17 04/02/17 19:00 07:00 Intake Total 250 ml Output Total 1600 ml Balance -1350 ml Intake Oral 250 ml Output Urine Total 1600 ml # Voids 6 Laboratory Tests 04/01/17 06:35: White Blood Count 2.5L, Red Blood Count 3.99L, Hemoglobin 11.8L, Hematocrit 35.3L, Mean Corpuscular Volume 88, Mean Corpuscular Hemoglobin 29.6, Mean Corpuscular Hemoglobin Concent 33.5, Red Cell Distribution Width 11.9, Platelet Count 237, Mean Platelet Volume 5.8L, Neutrophils (%) (Auto) , Lymphocytes (%) ( Auto) , Monocytes (%) (Auto) , Eosinophils (%) (Auto) , Basophils (%) (Auto) , Differential Total Cells Counted 100, Neutrophils % (Manual) 34L, Lymphocytes % (Manual) 55H, Monocytes % (Manual) 10, Eosinophils % (Manual) 1, Basophils % ( Manual) 0, Band Neutrophils 0, Platelet Estimate Adequate, Platelet Morphology Normal, Red Blood Cell Morphology Normal, Sodium Level 128L, Potassium Level 3.6 , Chloride Level 97L, Carbon Dioxide Level 25, Anion Gap 6, Blood Urea Nitrogen 4L, Creatinine 0.6, Estimat Glomerular Filtration Rate , Glucose Level 95, Calcium Level 7.9L Height (Feet): 4 Height (Inches): 11.00 Weight (Pounds): 100 General Appearance: confused Respiratory/Chest: decreased breath sounds Abdomen: non tender, soft Alvarez Coronel Apr 02, 2017 03:50
[2017-04-02 08:13] LABS: ANION GAP 7 mmol/L (5-15); BLOOD UREA NITROGEN 4 mg/dL (7-18); CALCIUM 8.3 MG/DL (8.5-10.1); CARBON DIOXIDE 24 MMOL/L (21-32); CHLORIDE 96 MMOL/L (98-107); CREATININE 0.5 MG/DL (0.55-1.30); POTASSIUM 3.7 MMOL/L (3.5-5.1); SODIUM 127 MMOL/L (136-145)
[2017-04-02 08:27] LABS: HEMATOCRIT 36.5 % (37.0-47.0); HEMOGLOBIN 12.2 G/DL (12.0-16.0); MEAN CORPUSCULAR VOLUME 88 FL (80-99); RED BLOOD COUNT 4.14 M/UL (4.20-5.40); WHITE BLOOD COUNT 2.9 K/UL (4.8-10.8)
[2017-04-02 08:34] LABS: PLATELET COUNT 313 K/UL (150-450); RED CELL DISTRIBUTION WIDTH 12.2 % (11.6-14.8)
[2017-04-02] MEDS: HydrALAZINE 50mg tab ORAL SCH ×3 (08:55→17:42)
[2017-04-02] MEDS: Aspirin EC 81mg tab ORAL SCH (08:55)
[2017-04-02] MEDS: Metoprolol Succinate XL 50mg tab ORAL SCH (08:55)
[2017-04-02] MEDS: Heparin 5000 units/ml inj SUBQ SCH ×2 (08:57→20:26)
--- NOTE | 2017-04-02 15:02 | General Progress Note ---
Assessment/Plan Assessment/Plan IMPRESSION Hyponatremia cardiomegaly leukopenia pulmonary congestion influenza + hypertension PLAN monitor sodium; tamiflu dc in am isolation iv hydration with NS add norvasc heme evaluation monitor WBC and hope to see improvement tylenol dc in am impression, plan, and exam reviewed Subjective Allergies: Coded Allergies: INFLUENZA VIRUS VACCINES (Verified Allergy, Intermediate, 03/29/17) Pt. states, "I always end up getting the flu every time I take a flu vaccine." PENICILLINS (Verified Allergy, Unknown, 03/28/17) Subjective stable nontoxic Objective Last 24 Hour Vital Signs Date Time Temp Pulse Resp B/P (MAP) Pulse Ox O2 Delivery O2 Flow Rate FiO2 04/02/17 12:18 163/69 04/02/17 12:00 97.3 66 20 163/69 100 Room Air 04/02/17 12:00 67 04/02/17 11:05 Room Air 04/02/17 11:05 Room Air 04/02/17 08:55 157/62 04/02/17 08:55 69 157/62 04/02/17 08:00 97.2 67 21 142/73 98 Room Air 04/02/17 08:00 68 04/02/17 07:00 Room Air 04/02/17 07:00 Room Air 04/02/17 04:00 97.4 65 20 157/62 98 Room Air 04/02/17 04:00 69 04/02/17 03:22 Room Air 21 04/02/17 03:22 Room Air 04/02/17 00:00 97.0 68 21 152/63 100 Room Air 04/02/17 00:00 74 04/01/17 23:15 Room Air 04/01/17 23:15 Room Air 04/01/17 20:05 70 04/01/17 20:00 97.4 74 20 120/70 96 Room Air 04/01/17 19:21 86 16 100 Room Air 04/01/17 19:14 78 20 100 Room Air 04/01/17 16:54 160/69 04/01/17 16:54 160/69 04/01/17 16:00 96.4 65 20 160/69 100 Room Air 04/01/17 16:00 67 04/01/17 15:19 73 18 100 Room Air 04/01/17 15:10 74 18 100 Room Air 21 Intake and Output 04/01/17 04/02/17 19:00 07:00 Intake Total 250 ml 1800 ml Output Total 1600 ml 400 ml Balance -1350 ml 1400 ml Intake Oral 250 ml IV Total 1800 ml Output Urine Total 1600 ml 400 ml # Voids 6 Laboratory Tests 04/02/17 07:20: White Blood Count 2.9L, Red Blood Count 4.14L, Hemoglobin 12.2, Hematocrit 36.5L , Mean Corpuscular Volume 88, Mean Corpuscular Hemoglobin 29.4, Mean Corpuscular Hemoglobin Concent 33.4, Red Cell Distribution Width 12.2, Platelet Count 313, Mean Platelet Volume 5.3L, Neutrophils (%) (Auto) , Lymphocytes (%) ( Auto) , Monocytes (%) (Auto) , Eosinophils (%) (Auto) , Basophils (%) (Auto) , Differential Total Cells Counted 100, Neutrophils % (Manual) 61, Lymphocytes % ( Manual) 32, Monocytes % (Manual) 7, Eosinophils % (Manual) 0, Basophils % ( Manual) 0, Band Neutrophils 0, Platelet Estimate Adequate, Platelet Morphology Normal, Red Blood Cell Morphology Normal, Sodium Level 127L, Potassium Level 3.7 , Chloride Level 96L, Carbon Dioxide Level 24, Anion Gap 7, Blood Urea Nitrogen 4L, Creatinine 0.5L, Estimat Glomerular Filtration Rate , Glucose Level 92, Calcium Level 8.3L Height (Feet): 4 Height (Inches): 11.00 Weight (Pounds): 100 Objective WDWN NAD some rhonchi [id number] without MRG NABS nontender no HSM no CCE nonfocal BILLY STRONG Apr 02, 2017 15:02
[2017-04-02] MEDS: Irbesartan 150mg tablet ORAL SCH (16:05)
[2017-04-02] MEDS ORDERED: Atorvastatin 20mg tab ORAL SCH ×2 (21:00)
--- NOTE | 2017-04-02 23:37 | General Progress Note ---
Assessment/Plan Status: unchanged Assessment/Plan 1. Leukopenia. --> Evaluate the patient for human immunodeficiency virus, hepatitis panel as well as ultrasound of the abdomen. --> HIV and Hep panel were both negative --> S/P Abdomen Xray --> revealed small bilateral renal cysts --> Improving. On abx. 2. Anemia due to underlying chronic disease. --> Continue to closely monitor. --> Blood transfusion not required unless symptomatic or hgb <7 --> Has been stable. PRBC not required. 3. Hyponatremia, --> closely monitor, likely secondary to ARB. --> Continue to check sodium. 4. Chronic obstructive pulmonary disease exacerbation, currently has improved. 5. Weakness, probably due to anemia. Subjective Date patient seen: Apr 02, 2017 Constitutional: Denies: no symptoms, chills, diaphoresis, fever, malaise, weakness, other HEENT: Denies: no symptoms, eye pain, blurred vision, tearing, double vision, ear pain, ear discharge, nose pain, nose congestion, throat pain, throat swelling, mouth pain, mouth swelling, other Cardiovascular: Denies: no symptoms, chest pain, edema, irregular heart rate, lightheadedness, palpitations, syncope, other Respiratory: Denies: no symptoms, cough, orthopnea, shortness of breath, SOB with excertion, SOB at rest, sputum, stridor, wheezing, other Gastrointestinal/Abdominal: Denies: no symptoms, abdomen distended, abdominal pain, black stools, tarry stools, blood in stool, constipated, diarrhea, difficulty swallowing, nausea, poor appetite, poor fluid intake, rectal bleeding , vomiting, other Genitourinary: Denies: no symptoms, burning, discharge, frequency, flank pain, hematuria, incontinence, pain, urgency, other Hematologic/Lymphatic: Reports: anemia Allergies: Coded Allergies: INFLUENZA VIRUS VACCINES (Verified Allergy, Intermediate, 03/29/17) Pt. states, "I always end up getting the flu every time I take a flu vaccine." PENICILLINS (Verified Allergy, Unknown, 03/28/17) Subjective No new events overnight. Leukopenia. H/H stable. Objective Last 24 Hour Vital Signs Date Time Temp Pulse Resp B/P (MAP) Pulse Ox O2 Delivery O2 Flow Rate FiO2 04/02/17 19:59 Room Air 21 04/02/17 19:59 Room Air 21 04/02/17 19:30 97.0 67 20 161/80 99 Room Air 67 04/02/17 18:59 167/72 04/02/17 17:42 179/71 04/02/17 16:05 169/78 04/02/17 16:00 97.0 66 19 169/78 99 Room Air 04/02/17 15:11 70 04/02/17 15:01 Room Air 04/02/17 15:01 Room Air 04/02/17 12:18 163/69 04/02/17 12:00 97.3 66 20 163/69 100 Room Air 04/02/17 12:00 67 04/02/17 11:05 Room Air 04/02/17 11:05 Room Air 04/02/17 08:55 157/62 04/02/17 08:55 69 157/62 04/02/17 08:00 97.2 67 21 142/73 98 Room Air 04/02/17 08:00 68 04/02/17 07:00 Room Air 04/02/17 07:00 Room Air 04/02/17 04:00 97.4 65 20 157/62 98 Room Air 04/02/17 04:00 69 04/02/17 03:22 Room Air 04/02/17 03:22 Room Air 04/02/17 00:00 97.0 68 21 152/63 100 Room Air 04/02/17 00:00 74 Intake and Output 04/01/17 04/02/17 19:00 07:00 Intake Total 250 ml 1800 ml Output Total 1600 ml 400 ml Balance -1350 ml 1400 ml Intake Oral 250 ml IV Total 1800 ml Output Urine Total 1600 ml 400 ml # Voids 6 Laboratory Tests 04/02/17 07:20: White Blood Count 2.9L, Red Blood Count 4.14L, Hemoglobin 12.2, Hematocrit 36.5L , Mean Corpuscular Volume 88, Mean Corpuscular Hemoglobin 29.4, Mean Corpuscular Hemoglobin Concent 33.4, Red Cell Distribution Width 12.2, Platelet Count 313, Mean Platelet Volume 5.3L, Neutrophils (%) (Auto) , Lymphocytes (%) ( Auto) , Monocytes (%) (Auto) , Eosinophils (%) (Auto) , Basophils (%) (Auto) , Differential Total Cells Counted 100, Neutrophils % (Manual) 61, Lymphocytes % ( Manual) 32, Monocytes % (Manual) 7, Eosinophils % (Manual) 0, Basophils % ( Manual) 0, Band Neutrophils 0, Platelet Estimate Adequate, Platelet Morphology Normal, Red Blood Cell Morphology Normal, Sodium Level 127L, Potassium Level 3.7 , Chloride Level 96L, Carbon Dioxide Level 24, Anion Gap 7, Blood Urea Nitrogen 4L, Creatinine 0.5L, Estimat Glomerular Filtration Rate , Glucose Level 92, Calcium Level 8.3L Height (Feet): 4 Height (Inches): 11.00 Weight (Pounds): 100 Alvarez Coronel Apr 02, 2017 23:37
[2017-04-03 03:28] VITALS: BP 147/51
[2017-04-03] MEDS: Albuterol ud Inhalation HHN SCH ×3 (03:30→11:00)
[2017-04-03 07:06] LABS: ANION GAP 6 mmol/L (5-15); BLOOD UREA NITROGEN 6 mg/dL (7-18); CALCIUM 7.7 MG/DL (8.5-10.1); CARBON DIOXIDE 23 MMOL/L (21-32); CHLORIDE 99 MMOL/L (98-107); CREATININE 0.6 MG/DL (0.55-1.30); HEMOGLOBIN 10.8 G/DL (12.0-16.0); MEAN CORPUSCULAR VOLUME 86 FL (80-99); PLATELET COUNT 270 K/UL (150-450); POTASSIUM 3.4 MMOL/L (3.5-5.1); RED CELL DISTRIBUTION WIDTH 11.9 % (11.6-14.8); SODIUM 128 MMOL/L (136-145); WHITE BLOOD COUNT 2.3 K/UL (4.8-10.8)
[2017-04-03 08:00] VITALS: BP 178/71
--- NOTE | 2017-04-03 08:11 | General Progress Note ---
Assessment/Plan Assessment/Plan IMPRESSION Hyponatremia cardiomegaly leukopenia pulmonary congestion influenza + hypertension PLAN bp meds tamiflu completed dc isolation dc today with close follow up cleared by hematology impression, plan, and exam reviewed Subjective Allergies: Coded Allergies: INFLUENZA VIRUS VACCINES (Verified Allergy, Intermediate, 03/29/17) Pt. states, "I always end up getting the flu every time I take a flu vaccine." PENICILLINS (Verified Allergy, Unknown, 03/28/17) Subjective stable nontoxic Objective Last 24 Hour Vital Signs Date Time Temp Pulse Resp B/P (MAP) Pulse Ox O2 Delivery O2 Flow Rate FiO2 04/03/17 03:30 Room Air 21 04/03/17 03:30 Room Air 21 04/03/17 03:28 97.5 59 20 147/51 98 Room Air 97 04/02/17 23:58 Room Air 21 04/02/17 23:58 Room Air 21 04/02/17 23:58 66 16 Room Air 21 04/02/17 23:41 97.5 58 20 143/56 98 Room Air 58 04/02/17 19:59 Room Air 21 04/02/17 19:59 Room Air 21 04/02/17 19:30 97.0 67 20 161/80 99 Room Air 67 04/02/17 18:59 167/72 04/02/17 17:42 179/71 04/02/17 16:05 169/78 04/02/17 16:00 97.0 66 19 169/78 99 Room Air 21 04/02/17 15:11 70 04/02/17 15:01 Room Air 21 04/02/17 15:01 Room Air 21 04/02/17 12:18 163/69 04/02/17 12:00 97.3 66 20 163/69 100 Room Air 04/02/17 12:00 67 04/02/17 11:05 Room Air 21 04/02/17 11:05 Room Air 21 04/02/17 08:55 157/62 04/02/17 08:55 69 157/62 Intake and Output 04/02/17 04/03/17 19:00 07:00 Intake Total 1600 ml Balance 1600 ml Intake Oral 700 ml IV Total 900 ml # Voids 1 # Bowel Movements 1 Laboratory Tests 04/03/17 05:50: White Blood Count 2.3L, Red Blood Count 3.60L, Hemoglobin 10.8L, Hematocrit 31.0L, Mean Corpuscular Volume 86, Mean Corpuscular Hemoglobin 30.0, Mean Corpuscular Hemoglobin Concent 34.8, Red Cell Distribution Width 11.9, Platelet Count 270, Mean Platelet Volume 4.9L, Neutrophils (%) (Auto) , Lymphocytes (%) ( Auto) , Monocytes (%) (Auto) , Eosinophils (%) (Auto) , Basophils (%) (Auto) , Differential Total Cells Counted 100, Neutrophils % (Manual) 38L, Lymphocytes % (Manual) 53H, Monocytes % (Manual) 7, Eosinophils % (Manual) 2, Basophils % ( Manual) 0, Band Neutrophils 0, Platelet Estimate Adequate, Platelet Morphology Normal, Hypochromasia 1+, Sodium Level 128L, Potassium Level 3.4L, Chloride Level 99, Carbon Dioxide Level 23, Anion Gap 6, Blood Urea Nitrogen 6L, Creatinine 0.6, Estimat Glomerular Filtration Rate , Glucose Level 86, Calcium Level 7.7L Height (Feet): 4 Height (Inches): 11.00 Weight (Pounds): 100 Objective WDWN NAD some rhonchi [id number] without MRG NABS nontender no HSM no CCE nonfocal BILLY STRONG Apr 03, 2017 08:11
[2017-04-03] MEDS ORDERED: Metoprolol Succinate XL 50mg tab ORAL SCH (09:00)
[2017-04-03] MEDS ORDERED: HydrALAZINE 50mg tab ORAL SCH (09:00)
[2017-04-03] MEDS ORDERED: Aspirin EC 81mg tab ORAL SCH (09:00)
[2017-04-03 09:01] VITALS: BP 158/61
[2017-04-03 09:03] VITALS: BP 158/61
[2017-04-03] MEDS: Heparin 5000 units/ml inj SUBQ SCH (09:04)
[2017-04-03] MEDS ORDERED: NORVASC5 MG ORAL (11:00)
[2017-04-03] MEDS ORDERED: AVAPRO300 MG ORAL (11:01)
[2017-04-03] MEDS ORDERED: Irbesartan 150mg tablet ORAL SCH (16:30)
--- NOTE | 2017-04-04 01:35 | General Progress Note ---
Assessment/Plan Status: stable Assessment/Plan 1. Leukopenia. --> Evaluate the patient for human immunodeficiency virus, hepatitis panel as well as ultrasound of the abdomen. --> HIV and Hep panel were both negative --> S/P Abdomen Xray, revealed small bilateral renal cysts --> Chest Xray showing cardiomegaly. --> Improving on antibiotics. 2. Anemia due to underlying chronic disease. --> Continue to closely monitor. --> Anemia workup reviewed. Iron 35, TIBC 167, Ferritin 465, B12 1074, folate 18.2. --> Blood transfusion not required unless symptomatic or hgb <7 --> Has been stable. PRBC not required. 3. Hyponatremia, --> closely monitor, likely secondary to ARB. --> Continue to check sodium. 4. Chronic obstructive pulmonary disease exacerbation, currently has improved. 5. Weakness, probably due to anemia. Subjective Date patient seen: Apr 03, 2017 Allergies: Coded Allergies: INFLUENZA VIRUS VACCINES (Verified Allergy, Intermediate, 03/29/17) Pt. states, "I always end up getting the flu every time I take a flu vaccine." PENICILLINS (Verified Allergy, Unknown, 03/28/17) Subjective No active bleeding. On antibiotics. NAD. Objective Last 24 Hour Vital Signs Date Time Temp Pulse Resp B/P (MAP) Pulse Ox O2 Delivery O2 Flow Rate FiO2 04/03/17 11:08 Room Air 21 04/03/17 11:08 Room Air 04/03/17 09:03 61 158/61 04/03/17 09:03 61 158/61 04/03/17 09:02 158/61 04/03/17 09:01 61 158/61 04/03/17 08:28 Room Air 21 04/03/17 08:28 Room Air 21 04/03/17 08:00 97.5 65 20 178/71 98 04/03/17 03:30 Room Air 21 04/03/17 03:30 Room Air 21 04/03/17 03:28 97.5 59 20 147/51 98 Room Air 97 Intake and Output 04/03/17 04/04/17 19:00 07:00 Intake Total 400 ml Balance 400 ml IV Total 400 ml Laboratory Tests 04/03/17 05:50: White Blood Count 2.3L, Red Blood Count 3.60L, Hemoglobin 10.8L, Hematocrit 31.0L, Mean Corpuscular Volume 86, Mean Corpuscular Hemoglobin 30.0, Mean Corpuscular Hemoglobin Concent 34.8, Red Cell Distribution Width 11.9, Platelet Count 270, Mean Platelet Volume 4.9L, Neutrophils (%) (Auto) , Lymphocytes (%) ( Auto) , Monocytes (%) (Auto) , Eosinophils (%) (Auto) , Basophils (%) (Auto) , Differential Total Cells Counted 100, Neutrophils % (Manual) 38L, Lymphocytes % (Manual) 53H, Monocytes % (Manual) 7, Eosinophils % (Manual) 2, Basophils % ( Manual) 0, Band Neutrophils 0, Platelet Estimate Adequate, Platelet Morphology Normal, Hypochromasia 1+, Sodium Level 128L, Potassium Level 3.4L, Chloride Level 99, Carbon Dioxide Level 23, Anion Gap 6, Blood Urea Nitrogen 6L, Creatinine 0.6, Estimat Glomerular Filtration Rate , Glucose Level 86, Calcium Level 7.7L Height (Feet): 4 Height (Inches): 11.00 Weight (Pounds): 100 General Appearance: no apparent distress EENT: normal ENT inspection Neck: normal alignment Cardiovascular: normal rate, regular rhythm Respiratory/Chest: lungs clear Abdomen: soft Alvarez Coronel Apr 04, 2017 01:35
--- NOTE | 2017-04-04 12:48 | Discharge Summary ---
Discharge Summary Hospital Course Date of Admission Mar 28, 2017 at 15:40 Date of Discharge Apr 03, 2017 at 11:50 Admitting Diagnosis dyspnea HPI Maribel Mora is a 86 year old female who was admitted on Mar 28, 2017 at 15:40 for Dyspnea Hospital Course [id number] Discharge Discharge Disposition Patient was discharged home Discharge Diagnoses: Kathe Garg NP Apr 04, 2017 12:48
--- NOTE | 2017-04-04 23:45 | Discharge Summary 2 SIG ---
DATE OF ADMISSION: 03/28/2017 DATE OF DISCHARGE: 04/03/2017 CONSULTANTS: 1. Alvarez Coronel M.D. 2. Misha Duong M.D. BRIEF HOSPITAL COURSE: The patient is an 86-year-old female, who presented to ED complaining of cough and congestion for one week and was feeling weak. Denied fever or chills. Denied chest pain. Denied leg swelling. Denied recent travel or sick contacts. She has medical history significant for hypertension and asthma. On evaluation at ED, blood work showed leukopenia, WBC was 2.1. Hemoglobin and hematocrit were stable. Troponin and BNP were elevated. Sodium was 122. EKG done showed no acute ischemic changes. Chest x-ray showed cardiomegaly with equivocal mild interstitial congestion. She was given aspirin and one time Lasix. She was then admitted to the medical floor for hyponatremia, pulmonary congestion, and leukopenia. She was given IV hydration with NS. She was started on ceftriaxone. Influenza screen was positive for influenza B. She was placed on isolation and was given Tamiflu. She had low sodium and was seen by Dr. Duong. Hyponatremia most probably secondary to medication. Avapro was discontinued. The patient was given amlodipine and hydralazine 100 mg b.i.d. and Toprol 50 mg daily for blood pressure control. She was continued on Lipitor. She had episode of hypokalemia and was given potassium replacement therapy. She was continued on aspirin and Lipitor. WBC continued to be low. Dr. Coronel was consulted. HIV virus and hepatitis were negative. Abdominal ultrasound showed no acute findings. Spleen appeared unremarkable. She also has anemia, which is probably secondary to chronic disease. She completed a course of Tamiflu. Isolation was discontinued. She was eventually discharged home to follow up with PMD and Hematology. FINAL DIAGNOSES: 1. Hyponatremia. 2. Influenza B infection. 3. Pulmonary congestion. 4. Hypertension. 5. Cardiomegaly. 6. Acute congestive heart failure. 7. Leukopenia. 8. Anemia due to underlying chronic disease. 9. Chronic obstructive pulmonary disease. DISPOSITION: The patient was discharged home. DISCHARGE MEDICATIONS: Discontinue Avapro. Refer to medication list. DISCHARGE INSTRUCTIONS: Follow up with PMD and Hematology in a week. Oswald Carbajal M.D. I have been assigned to dictate discharge summary on this account and I was not involved in the patient's management. Kathe Garg N.P. DR: LAVERN JOB#: [id number] CC: GLORIA
== END 2017-04-03 11:50 | disposition home or self-care (01) | DRG 194 ==
LOC: EMR 14:34 → 2E 15:40 → EDBEDREQ 15:57 → 2E 17:20 → 4W 04-02 18:20
DX: J10.1 Influenza due to other identified influenza virus with other respiratory manifestations (principal); J44.1 Chronic obstructive pulmonary disease with (acute) exacerbation; I11.0 Hypertensive heart disease with heart failure; I50.9 Heart failure, unspecified; E87.1 Hypo-osmolality and hyponatremia; T46.5X5A Adverse effect of other antihypertensive drugs, initial encounter; D63.8 Anemia in other chronic diseases classified elsewhere; Z88.0 Allergy status to penicillin; Z88.7 Allergy status to serum and vaccine; D72.818 Other decreased white blood cell count; J45.909 Unspecified asthma, uncomplicated; I51.7 Cardiomegaly; R79.89 Other specified abnormal findings of blood chemistry
CPT/HCPCS: 36415; 71045; 76700; 80048; 80053; 81003; 82378; 82550; 82553; 82607; 82728; 82746; 83540; 83550; 83605; 83615; 83690; 83880; 83921; 83935; 84443; 84484; 85007; 85025; 85044; 85384; 86703; 86705; 86709; 86710; 86803; 87040; 87340; 93005; 94640; 94664; 99285; J2405; J8499

== ENCOUNTER 2019-09-25 02:55 | Emergency (ER) | payer OTHER, MEDICAID ==
[~2019-09-25] VITALS: Ht 157.5 cm; Wt 54.4 kg
[~2019-09-25 02:55] MED LIST: ASPIR 8181 MG ORAL; ATORVASTATIN CA40 MG ORAL; AVAPRO300 MG ORAL; AZITHROMYCIN600 MG ORAL; DIOVAN320 MG ORAL; HYDRALAZINE HC100 MG ORAL; METOPROLOL SUCC50 MG ORAL; NORVASC5 MG ORAL; VENTOLIN HFA18 GM INH
[2019-09-25 03:12] VITALS: BP 183/72
--- NOTE | 2019-09-25 03:12 | NUR ---
6ED Nurse Note: WAlk-in patient with complaints of dysuria and recent hospitalization.
--- NOTE | 2019-09-25 03:30 | NUR ---
ED Nurse Note: Patient unable to render a urine sample at this time. Patient rendered water.
[2019-09-25 03:39] VITALS: BP 183/72
--- NOTE | 2019-09-25 03:39 | NUR ---
AMA: Patient walked out without rendering urine sample citing she will visit a clinic in the morning and that she didnt want to be in a hospital.
--- NOTE | 2019-09-25 03:43 | Emergency Room Report ---
History of Present Illness General Chief Complaint: Female Urogenital Problems Present Illness HPI Patient registered and was triaged for dysuria but was not in the room when I went to evaluate the patient. I was informed by staff that she had eloped. Her family was here to take her home. I had no interaction with this patient. Allergies: Coded Allergies: INFLUENZA VIRUS VACCINES (Verified Allergy, Intermediate, 03/29/17) Pt. states, "I always end up getting the flu every time I take a flu vaccine." PENICILLINS (Verified Allergy, Unknown, 03/28/17) COVID-19 Screening Contact w/high risk pt: No Experienced COVID-19 symptoms?: No COVID-19 Testing performed SINGER SONGWRITER: No Nursing Documentation-PMH Hx Cardiac Problems: Yes - recent [place] 09/2019 Hx Hypertension: Yes Hx Asthma: Yes Hx Cancer: No Hx Gastrointestinal Problems: No Hx Neurological Problems: No Physical Exam Vital Signs Date Time Temp Pulse Resp B/P (MAP) Pulse Ox O2 Delivery O2 Flow Rate FiO2 09/25/19 03:12 98.4 87 16 183/72 (109) 99 Room Air Medical Decision Making Diagnostic Impression: Primary Impression: Eloped from emergency department ER Course Patient eloped from emergency department prior to my evaluation with the patient. I had no interaction with this patient. Last Vital Signs Date Time Temp Pulse Resp B/P (MAP) Pulse Ox O2 Delivery O2 Flow Rate FiO2 09/25/19 03:12 98.4 87 16 183/72 (109) 99 Room Air Disposition: ELOPED Condition: Stable Referrals: NON PHYSICIAN (PCP) Marcio Murrieta MD Sep 25, 2019 03:43
== END 2019-09-25 03:39 | disposition left against medical advice (07) ==
LOC: EMR 03:20
DX: R30.0 Dysuria (principal); Z53.21 Procedure and treatment not carried out due to patient leaving prior to being seen by health care provider; I10 Essential (primary) hypertension; I25.2 Old myocardial infarction; Z88.0 Allergy status to penicillin; Z88.7 Allergy status to serum and vaccine

== ENCOUNTER 2019-12-19 11:09 | Inpatient (IN) | payer MEDICARE, MEDICAID ==
[~2019-12-19] VITALS: Ht 147.3 cm; Wt 39.5 kg
--- NOTE | 2019-12-19 11:31 | NUR ---
ED Nurse Note: Patient from home and walked in due to diarrhea x 3 days. Pt was also reported to fall 1 week ago and c/o low back pain. patikiara ellis AAO x4, ambulatory with non labored breathing. Noted pt to be weak and resting on bed. Dr Moon at the bed side.
[2019-12-19] MEDS ORDERED: Morphine Sulfate 2mg/ml Inj(IV/IM USE ONLY) IVP ONE (12:00)
--- NOTE | 2019-12-19 12:30 | NUR ---
pain meds given to x-rays via rsandra
[2019-12-19 12:40] VITALS: BP 158/61
[2019-12-19 12:48] LABS: APPEARANCE,URINE SLIGHTLY CLOUDY; BILIRUBIN, URINE NEGATIVE (NEGATIVE); GLUCOSE, URINE (UA) NEGATIVE (NEGATIVE); KETONES,URINE NEGATIVE (NEGATIVE); LEUKOCYTE ESTERASE ,URINE 3+ (NEGATIVE); NITRITE,URINE NEGATIVE (NEGATIVE); PH,URINE 6.5 (4.5-8.0); PROTEIN,URINE 2+ (NEGATIVE); UROBILINOGEN,URINE 1 MG/DL (0.0-1.0)
[2019-12-19 12:50] LABS: BASOPHILS % (AUTO) 0.8 % (0.0-2.0); EOSINOPHILS % (AUTO) 0.2 % (0.0-3.0); HEMATOCRIT 28.6 % (37.0-47.0); HEMOGLOBIN 9.5 G/DL (12.0-16.0); LYMPHOCYTES % (AUTO) 13.2 % (20.0-45.0); MEAN CORPUSCULAR VOLUME 94 FL (80-99); MONOCYTES % (AUTO) 12.1 % (1.0-10.0); NEUTROPHILS % (AUTO) 73.8 % (45.0-75.0); PLATELET COUNT 345 K/UL (150-450); RED BLOOD COUNT 3.04 M/UL (4.20-5.40); RED CELL DISTRIBUTION WIDTH 12.8 % (11.6-14.8); WHITE BLOOD COUNT 6.1 K/UL (4.8-10.8)
[2019-12-19 12:51] LABS: COLOR,URINE YELLOW
[2019-12-19 12:53] LABS: ANION GAP 8 mmol/L (5-15); BLOOD UREA NITROGEN 17 mg/dL (7-18); CALCIUM 8.2 MG/DL (8.5-10.1); CARBON DIOXIDE 27 MMOL/L (21-32); CHLORIDE 96 MMOL/L (98-107); CREATININE 0.8 MG/DL (0.55-1.30); POTASSIUM 3.7 MMOL/L (3.5-5.1); SODIUM 131 MMOL/L (136-145)
[2019-12-19 12:58] LABS: ALANINE AMINOTRANSFERASE 22 U/L (12-78); ALBUMIN/GLOBULIN RATIO 0.6 (1.0-2.7); ALKALINE PHOSPHATASE 69 U/L (46-116); ASPARTATE AMINO TRANSFERASE 22 U/L (15-37); BILIRUBIN,TOTAL 0.6 MG/DL (0.2-1.0)
[2019-12-19] MEDS ORDERED: DONEPEZIL HCL5 M2 ORAL (13:08)
[2019-12-19] MEDS ORDERED: FERROUS SULFAT325 MG ORAL (13:08)
[2019-12-19] MEDS ORDERED: CARVEDILOL6.25 MG ORAL (13:08)
[2019-12-19] MEDS ORDERED: FOLIC ACID1 MG ORAL (13:08)
[2019-12-19] MEDS ORDERED: ISOSORBIDE DINIT5 MG ORAL (13:08)
[2019-12-19] MEDS ORDERED: CLOPIDOGREL75 MG ORAL (13:08)
[2019-12-19] MEDS ORDERED: HYDRALAZINE HCL50 MG ORAL (13:08)
--- NOTE | 2019-12-19 13:43 | Diagnostic Imaging Report ---
FILM L SPINE Lumbar Spine, 3 views INDICATION: Pain COMPARISON: None FINDINGS: Multiple views of the lumbar spine are obtained. Normal alignment demonstrated. Aorta and iliac vessel atherosclerosis. Disc space narrowing and sclerosis and osteophytosis with facet hypertrophy. There is a compression deformity of L2. Alignment is anatomic. The paraspinal soft tissues are within normal limits. Large amount of stool seen within the colon. IMPRESSION: Compression deformity of L2 which may represent subacute injury. Follow-up with CT or MRI recommended.
--- NOTE | 2019-12-19 13:45 | Diagnostic Imaging Report ---
FILM ABDOMEN HISTORY: Pain TECHNIQUE: 2 views of the abdomen COMPARISON: None FINDINGS: 2 views of the abdomen. Large amount of stool within the colon particularly in the sigmoid colon and rectum. Diffuse osteopenia and degenerative changes with dense vascular calcifications. L2 deformity noted. Enlarged heart demonstrated. No free air or obstructive changes. IMPRESSION: Diffuse constipation with large amount of stool within the rectum and colon. Enlarged heart. L2 compression deformity which may represent subacute injury.
--- NOTE | 2019-12-19 14:00 | NUR ---
ED Nurse Note: patient ambulated to the restroom with her walker with out distress. Son assisted the patient.
--- NOTE | 2019-12-19 14:28 | Emergency Room Report ---
History of Present Illness General Chief Complaint: General Complaint Source: Patient Present Illness HPI Patient presents emergency department today complaining of a fall that occurred about a week ago. Since then patient has had lower back pain and hip pain. Patient states that she is able to walk but significant lower back pain with movement. No other injuries were noted. In addition patient also complains of diarrhea and lower back pain. No other complaints are noted. Symptoms are moderate to severe. Denies any fever nausea vomiting or chills. No other modifying factors. No other associated signs and symptoms. No other complaints were noted. Allergies: Coded Allergies: INFLUENZA VIRUS VACCINES (Verified Allergy, Intermediate, 03/29/17) Pt. states, "I always end up getting the flu every time I take a flu vaccine." PENICILLINS (Verified Allergy, Unknown, 03/28/17) COVID-19 Screening Contact w/high risk pt: No Recent Travel to affected area: No Experienced COVID-19 symptoms?: No COVID-19 Testing performed SALES LEDGER CLERK: No Patient History Past Medical History: HTN, [place], asthma Past Surgical History: none Pertinent Family History: none Social History: Denies: smoking, alcohol use, drug use Reviewed Nursing Documentation: PMH: Agreed; PSxH: Agreed Nursing Documentation-PMH Past Medical History: No History, Except For Hx Cardiac Problems: Yes - recent [place] 09/2019 Hx Hypertension: Yes Hx Asthma: Yes Hx Cancer: No Hx Gastrointestinal Problems: No Hx Neurological Problems: No Review of Systems All Other Systems: negative except mentioned in HPI Physical Exam Vital Signs Date Time Temp Pulse Resp B/P (MAP) Pulse Ox O2 Delivery O2 Flow Rate FiO2 12/19/19 11:21 98.1 67 18 158/61 (93) 97 Room Air Sp02 EP Interpretation: reviewed, normal General Appearance: normal inspection, well appearing, no apparent distress, alert Head: atraumatic Eyes: bilateral eye normal inspection ENT: normal ENT inspection, hearing grossly normal, normal voice Neck: normal inspection, full range of motion, supple, no bony tend Respiratory: normal inspection, lungs clear, normal breath sounds, no respiratory distress, no retraction, no wheezing Cardiovascular #1: regular rate, rhythm, no edema Gastrointestinal: normal inspection, normal bowel sounds, non tender, soft, no guarding, no hernia Genitourinary: no CVA tenderness Musculoskeletal: normal inspection, normal range of motion, tender - Lower back area. Neurologic: alert, responsive, speech normal, normal inspection Psychiatric: normal inspection, judgement/insight normal, mood/affect normal Skin: no rash Medical Decision Making Diagnostic Impression: Primary Impression: Diarrhea Additional Impressions: Back pain Compression fracture of L2 lumbar vertebra ER Course Patient presents emergency department today complaining of diarrhea and lower back pain. Differential considerations include gastroenteritis, fracture, strain, electrolyte abnormality, dehydration just name a few. Given the se verity of the patient's presentation I felt this is a highly complex patient. This patient required extensive workup. Patient's laboratory work-up was not impressive. X-rays of patient's lumbar spine however shows evidence of L2 lumbar fracture per radiology. In addition patient's abdominal x-rays show copious amount of stool. No evidence of bowel obstruction noted. Patient's pelvis and hip x-rays did not show any evidence of fracture. I will sign this case out to Dr. Marcio Murrieta for final disposit ion. Labs Test 12/19/19 12:30 White Blood Count 6.1 K/UL (4.8-10.8) Red Blood Count 3.04 M/UL (4.20-5.40) Hemoglobin 9.5 G/DL (12.0-16.0) Hematocrit 28.6 % (37.0-47.0) Mean Corpuscular Volume 94 FL (80-99) Mean Corpuscular Hemoglobin 31.4 PG (27.0-31.0) Mean Corpuscular Hemoglobin Concent 33.4 G/DL (32.0-36.0) Red Cell Distribution Width 12.8 % (11.6-14.8) Platelet Count 345 K/UL (150-450) Mean Platelet Volume 4.9 FL (6.5-10.1) Neutrophils (%) (Auto) 73.8 % (45.0-75.0) Lymphocytes (%) (Auto) 13.2 % (20.0-45.0) Monocytes (%) (Auto) 12.1 % (1.0-10.0) Eosinophils (%) (Auto) 0.2 % (0.0-3.0) Basophils (%) (Auto) 0.8 % (0.0-2.0) Urine Color Yellow Urine Appearance Slightly cloudy Urine pH 6.5 (4.5-8.0) Urine Specific [place] 1.015 (1.005-1.035) Urine Protein 2+ (NEGATIVE) Urine Glucose (UA) Negative (NEGATIVE) Urine Ketones Negative (NEGATIVE) Urine Blood 3+ (NEGATIVE) Urine Nitrite Negative (NEGATIVE) Urine Bilirubin Negative (NEGATIVE) Urine Urobilinogen 1 MG/DL (0.0-1.0) Urine Leukocyte Esterase 3+ (NEGATIVE) Urine RBC 2-4 /HPF (0 - 2) Urine WBC 5-10 /HPF (0 - 2) Urine Squamous Epithelial Cells Few /LPF (NONE/OCC) Urine Amorphous Sediment Moderate /LPF (NONE) Urine Bacteria Few /HPF (NONE) Sodium Level 131 MMOL/L (136-145) Potassium Level 3.7 MMOL/L (3.5-5.1) Chloride Level 96 MMOL/L (98-107) Carbon Dioxide Level 27 MMOL/L (21-32) Anion Gap 8 mmol/L (5-15) Blood Urea Nitrogen 17 mg/dL (7-18) Creatinine 0.8 MG/DL (0.55-1.30) Estimat Glomerular Filtration Rate > 60 mL/min (>60) Glucose Level 99 MG/DL (74-106) Calcium Level 8.2 MG/DL (8.5-10.1) Total Bilirubin 0.6 MG/DL (0.2-1.0) Aspartate Amino Transf (AST/SGOT) 22 U/L (15-37) Alanine Aminotransferase (ALT/SGPT) 22 U/L (12-78) Alkaline Phosphatase 69 U/L (46-116) Total Protein 8.0 G/DL (6.4-8.2) Albumin 3.0 G/DL (3.4-5.0) Globulin 5.0 g/dL Albumin/Globulin Ratio 0.6 (1.0-2.7) Lipase 102 U/L (73-393) Last Vital Signs Date Time Temp Pulse Resp B/P (MAP) Pulse Ox O2 Delivery O2 Flow Rate FiO2 12/19/19 12:40 98.1 18 158/61 97 Room Air 12/19/19 11:31 67 Status: improved Disposition: SHORT-TERM HOSP Condition: Serious Referrals: NON PHYSICIAN (PCP) Erasto Moon MD Dec 19, 2019 14:28
[2019-12-19] MEDS ORDERED: cefTRIAXone 1 GM in NS 55 ML IVPB ONE (14:45)
--- NOTE | 2019-12-19 14:47 | Diagnostic Imaging Report ---
FILM HIP + PELVIS HISTORY: Trauma TECHNIQUE: 2 films of the pelvis and left hip COMPARISON: None FINDINGS: Degenerative changes and diffuse osteopenia. Large amount of stool seen within the rectum and colon. No free air or obstructive changes. No acute fracture or dislocation. Dense vascular calcifications are present. IMPRESSION: No acute fracture or dislocation. Large amount of stool within the colon.
--- NOTE | 2019-12-19 15:03 | Emergency Room Report ---
Physical Exam Vital Signs Date Time Temp Pulse Resp B/P (MAP) Pulse Ox O2 Delivery O2 Flow Rate FiO2 12/19/19 11:21 98.1 67 18 158/61 (93) 97 Room Air Medical Decision Making Diagnostic Impression: Primary Impression: Diarrhea Additional Impressions: Back pain Compression fracture of L2 lumbar vertebra UTI (urinary tract infection) Constipation ER Course Assumed care of the patient from the previous provider at approximately 1400. Please refer to initial note for full history and physical exam. Briefly, 89-year-old female presenting with diarrhea, back pain after a recent fall. Concern for acute to subacute L2 fracture, UTI and fecal impaction. Patient treated with IV antibiotics for urinary tract infection. Patient was approved for admission at our hospital. Dr. Carbajal is the panel physician and has accepted the patient to his service. Laboratory Tests Test 12/19/19 12:30 White Blood Count 6.1 K/UL (4.8-10.8) Red Blood Count 3.04 M/UL (4.20-5.40) L Hemoglobin 9.5 G/DL (12.0-16.0) L Hematocrit 28.6 % (37.0-47.0) L Mean Corpuscular Volume 94 FL (80-99) Mean Corpuscular Hemoglobin 31.4 PG (27.0-31.0) H Mean Corpuscular Hemoglobin Concent 33.4 G/DL (32.0-36.0) Red Cell Distribution Width 12.8 % (11.6-14.8) Platelet Count 345 K/UL (150-450) Mean Platelet Volume 4.9 FL (6.5-10.1) L Neutrophils (%) (Auto) 73.8 % (45.0-75.0) Lymphocytes (%) (Auto) 13.2 % (20.0-45.0) L Monocytes (%) (Auto) 12.1 % (1.0-10.0) H Eosinophils (%) (Auto) 0.2 % (0.0-3.0) Basophils (%) (Auto) 0.8 % (0.0-2.0) Urine Color Yellow Urine Appearance Slightly cloudy Urine pH 6.5 (4.5-8.0) Urine Specific [place] 1.015 (1.005-1.035) Urine Protein 2+ (NEGATIVE) H Urine Glucose (UA) Negative (NEGATIVE) Urine Ketones Negative (NEGATIVE) Urine Blood 3+ (NEGATIVE) H Urine Nitrite Negative (NEGATIVE) Urine Bilirubin Negative (NEGATIVE) Urine Urobilinogen 1 MG/DL (0.0-1.0) H Urine Leukocyte Esterase 3+ (NEGATIVE) H Urine RBC 2-4 /HPF (0 - 2) H Urine WBC 5-10 /HPF (0 - 2) H Urine Squamous Epithelial Cells Few /LPF (NONE/OCC) Urine Amorphous Sediment Moderate /LPF (NONE) H Urine Bacteria Few /HPF (NONE) Sodium Level 131 MMOL/L (136-145) L Potassium Level 3.7 MMOL/L (3.5-5.1) Chloride Level 96 MMOL/L (98-107) L Carbon Dioxide Level 27 MMOL/L (21-32) Anion Gap 8 mmol/L (5-15) Blood Urea Nitrogen 17 mg/dL (7-18) Creatinine 0.8 MG/DL (0.55-1.30) Estimated Glomerular Filtration Rate > 60 mL/min (>60) Glucose Level 99 MG/DL (74-106) Calcium Level 8.2 MG/DL (8.5-10.1) L Total Bilirubin 0.6 MG/DL (0.2-1.0) Aspartate Amino Transferase (AST) 22 U/L (15-37) Alanine Aminotransferase (ALT) 22 U/L (12-78) Alkaline Phosphatase 69 U/L (46-116) Total Protein 8.0 G/DL (6.4-8.2) Albumin 3.0 G/DL (3.4-5.0) L Globulin 5.0 g/dL Albumin/Globulin Ratio 0.6 (1.0-2.7) L Lipase 102 U/L (73-393) Last Vital Signs Date Time Temp Pulse Resp B/P (MAP) Pulse Ox O2 Delivery O2 Flow Rate FiO2 12/19/19 12:40 98.1 18 158/61 97 Room Air 12/19/19 11:31 67 Disposition: ADMITTED INPATIENT Condition: Serious Referrals: NON PHYSICIAN (PCP) Marcio Murrieta MD Dec 19, 2019 15:03
[2019-12-19 15:14] VITALS: BP 185/72
--- NOTE | 2019-12-19 15:15 | NUR ---
ED Nurse Note: BP 185/[address] Murrieta was notified.
--- NOTE | 2019-12-19 15:44 | NUR ---
ED Nurse Note: Report given to Berta GUZMAN of med surg unit.
[2019-12-19] MEDS ORDERED: Labetalol 5mg/ml 20ml vial IV ONE (16:00)
[2019-12-19 16:31] VITALS: BP 170/52
[2019-12-19 17:14] VITALS: BP 156/51
--- NOTE | 2019-12-19 17:16 | NUR ---
ED Nurse Note: Patient transferred to Med Surg unit via gurney with all her belongings sent.
[2019-12-19 17:50] VITALS: BP 171/69
[2019-12-19] MEDS ORDERED: HydrALAZINE 25mg tab ORAL PRN (18:15)
--- NOTE | 2019-12-19 19:47 | NUR ---
NURSE HAND-OFF: Important Events on Shift:[admission] Patient Status: [stable ] Diet: [cardiac mech soft] Pending Orders: [cbc, bmp] Pending Results/Labs:[] Pending MD notification:[] Latest Vital Signs: Temperature 97.3 , Pulse 81 , B/P 171 /69 , Respiratory Rate 18 , O2 SAT 100 , Room Air, O2 Flow Rate . Vital Sign Comment: [] Latest Agustin Fall Score: 60 Fall Risk: High Risk Safety Measures: Call light Within Reach, Bed Alarm Zone 1, Side Rails Side Rails x1, Bed position Low and Locked. Fall Precautions: Yellow Socks Yellow Gown Door Sign Patient Fall Education Report given to [jesse Lutz]. Addendum: 12/19/19 at 1949 by JAMEEL MCINTYRE RN report to JESSE Joshi
[2019-12-19 20:00] VITALS: BP 153/47
[2019-12-19] MEDS: cefTRIAXone 1 GM in D5W 55 ML IVPB SCH (20:00)
[2019-12-19] MEDS: Atorvastatin 20mg tab ORAL SCH (20:22)
[2019-12-19] MEDS: Donepezil 5mg Tab ORAL SCH (20:28)
[2019-12-19] MEDS: Carvedilol 6.25mg Tab ORAL SCH (20:29)
[2019-12-19] MEDS ORDERED: Albuterol/Ipratropium 3ml neb HHN PRN (21:00)
--- NOTE | 2019-12-19 21:03 | History & Physical ---
History and Physical History & Physicial History and Physical HPI Patient is an 89 year old woman with past history of Dementia,Hypertension, CAD,Asthma who presents complaining of diarrhea and lower back pain, noted to manzanares ve UTI - given OP antibiotics, had a fall about a week ago. Since then patient has had lower back pain and hip pain. Patient states that she is able to walk but significant lower back pain with movement. No other injuries were noted. In addition patient also complains of diarrhea and lower back pain. No other complaints are noted. Symptoms are moderate to severe. Denies any fever nausea vomiting or chills. No other modifying factors. No other associated signs and symptoms. No other complaints were noted. Allergies: Coded Allergies: INFLUENZA VIRUS VACCINES PENICILLINS Past Medical History: HTN, [place] Sep 2019, Asthma,Dementia Past Surgical History: none Pertinent Family History: none Social History: Denies: smoking, alcohol use, drug use All Other Systems: negative except mentioned in HPI Physical Exam Vital Signs Noted Date Time Temp Pulse Resp B/P (MAP) Pulse Ox O2 Delivery O2 Flow Rate FiO2 12/19/19 11:21 98.1 67 18 158/61 (93) 97 Room Air General Appearance: normal inspection, well appearing, no apparent distress, alert Head: atraumatic Eyes: bilateral eye normal inspection ENT: normal ENT inspection, hearing grossly normal, normal voice Neck: normal inspection, full range of motion, supple, no bony tend Respiratory: normal inspection, lungs clear, normal breath sounds, no respiratory distress, no retraction, no wheezing Cardiovascular: regular rate, rhythm, no edema Gastrointestinal: normal inspection, normal bowel sounds, non tender, soft, no guarding, no hernia Genitourinary: no CVA tenderness Musculoskeletal: normal inspection, normal range of motion, tender - Lower back area. Neurologic: alert, responsive, speech normal, normal inspection Psychiatric: normal inspection, judgement/insight normal, mood/affect normal, normal power,n ormal sensation Skin: no rash Medical Decision Making Impression: Diarrhea Back pain Compression fracture of L2 lumbar vertebra Recent UTI Hypertension Previous [place] Dementia Plan - Continue IV Antibiotics - Analgesia - Stool CDiff - BOX TOE FLANGER STITCHDOWNS Medications - PPX - O2 PRN - PRN HH- O2 PRN - Monitor labs Labs Test 12/19/19 12:30 White Blood Count 6.1 K/UL (4.8-10.8) Red Blood Count 3.04 M/UL (4.20-5.40) Hemoglobin 9.5 G/DL (12.0-16.0) Hematocrit 28.6 % (37.0-47.0) Mean Corpuscular Volume 94 FL (80-99) Mean Corpuscular Hemoglobin 31.4 PG (27.0-31.0) Mean Corpuscular Hemoglobin Concent 33.4 G/DL (32.0-36.0) Red Cell Distribution Width 12.8 % (11.6-14.8) Platelet Count 345 K/UL (150-450) Mean Platelet Volume 4.9 FL (6.5-10.1) Neutrophils (%) (Auto) 73.8 % (45.0-75.0) Lymphocytes (%) (Auto) 13.2 % (20.0-45.0) Monocytes (%) (Auto) 12.1 % (1.0-10.0) Eosinophils (%) (Auto) 0.2 % (0.0-3.0) Basophils (%) (Auto) 0.8 % (0.0-2.0) Urine Color Yellow Urine Appearance Slightly cloudy Urine pH 6.5 (4.5-8.0) Urine Specific [place] 1.015 (1.005-1.035) Urine Protein 2+ (NEGATIVE) Urine Glucose (UA) Negative (NEGATIVE) Urine Ketones Negative (NEGATIVE) Urine Blood 3+ (NEGATIVE) Urine Nitrite Negative (NEGATIVE) Urine Bilirubin Negative (NEGATIVE) Urine Urobilinogen 1 MG/DL (0.0-1.0) Urine Leukocyte Esterase 3+ (NEGATIVE) Urine RBC 2-4 /HPF (0 - 2) Urine WBC 5-10 /HPF (0 - 2) Urine Squamous Epithelial Cells Few /LPF (NONE/OCC) Urine Amorphous Sediment Moderate /LPF (NONE) Urine Bacteria Few /HPF (NONE) Sodium Level 131 MMOL/L (136-145) Potassium Level 3.7 MMOL/L (3.5-5.1) Chloride Level 96 MMOL/L (98-107) Carbon Dioxide Level 27 MMOL/L (21-32) Anion Gap 8 mmol/L (5-15) Blood Urea Nitrogen 17 mg/dL (7-18) Creatinine 0.8 MG/DL (0.55-1.30) Estimat Glomerular Filtration Rate > 60 mL/min (>60) Glucose Level 99 MG/DL (74-106) Calcium Level 8.2 MG/DL (8.5-10.1) Total Bilirubin 0.6 MG/DL (0.2-1.0) Aspartate Amino Transf (AST/SGOT) 22 U/L (15-37) Alanine Aminotransferase (ALT/SGPT) 22 U/L (12-78) Alkaline Phosphatase 69 U/L (46-116) Total Protein 8.0 G/DL (6.4-8.2) Albumin 3.0 G/DL (3.4-5.0) Globulin 5.0 g/dL Albumin/Globulin Ratio 0.6 (1.0-2.7) Lipase 102 U/L (73-393) X-rays of patient's lumbar spineshows evidence of L2 lumbar fracture per radiology. Abdominal x-rays show copious amount of stool. No evidence of bowel obstruction noted. Patient's pelvis and hip x-rays did not show any evidence of fracture. Jed Welch MD Dec 19, 2019 21:03
[2019-12-19] MEDS: metroNIDAZOLE 500mg tab ORAL SCH (21:09)
[2019-12-20] VITALS (7 sets, daily range): BP systolic 138–157; BP diastolic 50–70
[2019-12-20] MEDS: metroNIDAZOLE 500mg tab ORAL SCH ×3 (06:30→21:13)
[2019-12-20 06:42] LABS: BASOPHILS % (AUTO) 0.7 % (0.0-2.0); EOSINOPHILS % (AUTO) 0.8 % (0.0-3.0); HEMATOCRIT 27.5 % (37.0-47.0); HEMOGLOBIN 9.3 G/DL (12.0-16.0); LYMPHOCYTES % (AUTO) 12.1 % (20.0-45.0); MEAN CORPUSCULAR VOLUME 92 FL (80-99); MONOCYTES % (AUTO) 10.9 % (1.0-10.0); NEUTROPHILS % (AUTO) 75.5 % (45.0-75.0); PLATELET COUNT 370 K/UL (150-450); RED BLOOD COUNT 2.98 M/UL (4.20-5.40); RED CELL DISTRIBUTION WIDTH 12.5 % (11.6-14.8); WHITE BLOOD COUNT 5.8 K/UL (4.8-10.8)
[2019-12-20 07:13] LABS: CALCIUM 8.3 MG/DL (8.5-10.1); POTASSIUM 3.9 MMOL/L (3.5-5.1)
--- NOTE | 2019-12-20 07:16 | NUR ---
NURSE HAND-OFF: Important Events on Shift: pt admitted last night, complaining of inability to poop, is constipated, corroborated on imaging. MD would not give oral meds for constipation as at admission pt said there was a day or two of diarrhea but she denies it and says she needs to have a bowel movement, given prn dulcolax suppository last night Diet: [cardiac mech soft, pills whole given one at a time Pending Orders: [cbc, bmp] Pending Results/Labs:[ see am labs] Pending MD notification: wait for am labs, Na is low at 131 Latest Agustin Fall Score: 60 Fall Risk: High Risk Safety Measures: Call light Within Reach, Bed Alarm Zone 1, Side Rails Side Rails x1, Bed position Low and Locked. Fall Precautions: Yellow Socks Yellow Gown Door Sign Patient Fall Education Report given to Dmitri GUZMAN
--- NOTE | 2019-12-20 07:40 | NUR ---
NURSE NOTES:AM report received. pt is awake and verbally responsive sitting at the bedside. respiration is even and unlabored on room air. pt said she would eat breakfast later, meal at the bedside. denies any abdominal pain at this time. no acute distress noted. place call light within reach, will follow plan of care.
[2019-12-20] MEDS ORDERED: Varibar Thin Liquid powder 148gm MC PRN (08:00)
[2019-12-20] MEDS ORDERED: Varibar Honey 250ml MC PRN (08:00)
[2019-12-20] MEDS ORDERED: Varibar Pudding 230ml MC PRN (08:00)
[2019-12-20] MEDS ORDERED: Varibar Nectar 240ml MC PRN (08:00)
--- NOTE | 2019-12-20 08:31 | General Progress Note ---
Subjective Allergies: Coded Allergies: INFLUENZA VIRUS VACCINES (Verified Allergy, Intermediate, 03/29/17) Pt. states, "I always end up getting the flu every time I take a flu vaccine." PENICILLINS (Verified Allergy, Unknown, 03/28/17) Subjective care noted Objective Last 24 Hour Vital Signs Date Time Temp Pulse Resp B/P (MAP) Pulse Ox O2 Delivery O2 Flow Rate FiO2 12/20/19 08:00 98.2 67 19 149/62 (91) 97 12/20/19 04:00 97.8 76 18 140/52 (81) 99 12/20/19 01:06 98.0 66 18 138/50 (79) 100 12/20/19 00:00 98.0 66 18 138/50 (79) 100 12/19/19 21:00 Room Air 12/19/19 20:29 70 153/47 12/19/19 20:28 153/47 12/19/19 20:00 97.9 70 18 153/47 (82) 100 12/19/19 17:53 Room Air 12/19/19 17:50 97.3 81 18 171/69 (103) 100 12/19/19 17:14 98.3 79 16 156/51 99 Room Air 12/19/19 17:14 98.3 79 16 156/51 99 Room Air 12/19/19 16:31 98.3 85 18 170/52 98 Room Air 12/19/19 16:10 72 185/72 12/19/19 15:21 185/72 12/19/19 15:14 98.7 72 16 185/72 96 Room Air 12/19/19 13:03 98.1 12/19/19 12:40 98.1 18 158/61 97 Room Air 12/19/19 11:31 67 18 Room Air 12/19/19 11:21 98.1 67 18 158/61 (93) 97 Room Air Intake and Output 12/19/19 12/20/19 19:00 07:00 Intake Total 675 ml Balance 675 ml Intake Oral 120 ml IV Total 555 ml # Voids 2 3 Laboratory Tests 12/19/19 12:30: White Blood Count 6.1, Red Blood Count 3.04L, Hemoglobin 9.5L, Hematocrit 28.6L, Mean Corpuscular Volume 94, Mean Corpuscular Hemoglobin 31.4H, Mean Corpuscular Hemoglobin Concent 33.4, Red Cell Distribution Width 12.8, Platelet Count 345, Mean Platelet Volume 4.9L, Neutrophils (%) (Auto) 73.8, Lymphocytes (%) (Auto) 13.2L, Monocytes (%) (Auto) 12.1H, Eosinophils (%) (Auto) 0.2, Basophils (%) (Auto) 0.8, Urine Color Yellow, Urine Appearance Slightly cloudy, Urine pH 6.5, Urine Specific [place] 1.015, Urine Protein 2+H, Urine Glucose (UA) Negative, Urine Ketones Negative, Urine Blood 3+H, Urine Nitrite Negative, Urine Bilirubin Negative, Urine Urobilinogen 1H, Urine Leukocyte Esterase 3+H, Urine RBC 2-4H, Urine WBC 5-10H, Urine Squamous Epithelial Cells Few, Urine Amorphous Sediment ModerateH, Urine Bacteria Few, Sodium Level 131L, Potassium Level 3.7, Chloride Level 96L, Carbon Dioxide Level 27, Anion Gap 8, Blood Urea Nitrogen 17, Creatinine 0.8, Estimat Glomerular Filtration Rate > 60, Glucose Level 99, Calcium Level 8.2L, Total Bilirubin 0.6, Aspartate Amino Transf (AST/SGOT) 22, Alanine Aminotransferase (ALT/SGPT) 22, Alkaline Phosphatase 69, Total Protein 8.0, Albumin 3.0L, Globulin 5.0, Albumin/Globulin Ratio 0.6L, Lipase 102 12/20/19 05:20: White Blood Count 5.8, Red Blood Count 2.98L, Hemoglobin 9.3L, Hematocrit 27.5L, Mean Corpuscular Volume 92, Mean Corpuscular Hemoglobin 31.1H, Mean Corpuscular Hemoglobin Concent 33.6, Red Cell Distribution Width 12.5, Platelet Count 370, Mean Platelet Volume 5.0L, Neutrophils (%) (Auto) 75.5H, Lymphocytes (%) (Auto) 12.1L, Monocytes (%) (Auto) 10.9H, Eosinophils (%) (Auto) 0.8, Basophils (%) (Auto) 0.7, Sodium Level 131L, Potassium Level 3.9, Chloride Level 99, Carbon Dioxide Level 28, Anion Gap 4L, Blood Urea Nitrogen 16, Creatinine 1.0, Estimat Glomerular Filtration Rate 52.5, Glucose Level 98, Calcium Level 8.3L Height (Feet): 4 Height (Inches): 10.00 Weight (Pounds): 87 Objective WDWN NAD clear breath sounds bilaterally without rhonchi or wheeze [id number] without MRG NABS nontender no HSM no CCE nonfocal Assessment/Plan Assessment/Plan: Impression: Diarrhea with constipation Back pain Compression fracture of L2 lumbar vertebra Recent UTI Hypertension Previous [place] Dementia Plan - Continue IV Antibiotics - Analgesia - Stool CDiff - SENIOR MOBILE APPLICATION DEVELOPER Medications - PPX - O2 PRN - PRN HH- O2 PRN - Monitor labs Oswald Carbajal MD Dec 20, 2019 08:31
[2019-12-20] MEDS: Carvedilol 6.25mg Tab ORAL SCH ×2 (09:08→20:10)
--- NOTE | 2019-12-20 09:28 | NUR ---
RD ASSESSMENT & RECOMMENDATIONS SEE CARE ACTIVITY FOR COMPLETE ASSESSMENT DAILY ESTIMATED NEEDS: Needs based on Cardiac 40.3kg 27-32 kcals/kg 9235-6639 total kcals 1-1.2 g protein/kg 40-48 g total protein 27-32ml/kcal mL/kg 2064-3477 total fluid mLs NUTRITION DIAGNOSIS: Decreased sodium needs r/t cardiac history as evidenced by h/o HTN, elev BP (149/62) CURRENT DIET: Cardiac PO DIET RECOMMENDATIONS: LOW NA DIET/ texture as tolerated ADDITIONAL RECOMMENDATIONS: 1) Recalibrate bed scale wt for accurate CBW 2) Check lytes daily- replete as needed (low Na 131) 3) UPSET OPERATOR eval for appropriate texture as needed 4) Add ENSURE 1 can BID w/ fair po intake snacks as tolerated
--- NOTE | 2019-12-20 13:22 | NUR ---
P.T Note P.T evaluation completed and tx initiated please refer to P.T evaluation completed for full report.
--- NOTE | 2019-12-20 15:42 | NUR ---
INSURANCE CLINICALS FAXED TO [facility] [phone]
--- NOTE | 2019-12-20 15:54 | NUR ---
CASE MANAGEMENT:INITIAL REVIEW 89 YR OLD FEMALE FROM HOME CC;GENERAL COMPLAINT SI;ABDOMINAL PAIN. DIARRHEA. COMPRESSION FX. UTI. 98.1 67 18 158/61 97% ON RA NA 131 VL 96 CA 8.2 ALB 3.0 UA+ PROTEIN, BLOOD, UROBILINOGEN, LEUKOCYTE ESTERASE, RBC, WBC, AMORPHOUS SEDIMENT ABD XRAY ~ Diffuse constipation with large amount of stool within the rectum and colon. Enlarged heart. L2 compression deformity which may represent subacute injury. LUMBAR SPINE XRAY ~ Compression deformity of L2 which may represent subacute injury. Follow-up with CT or MRI recommended. HIP/PELVIS XRAY ~ No acute fracture or dislocation. Large amount of stool within the colon. IS;LABETALOL IV ONCE ZOFRAN IV ONCE MORPHINE SULFATE IV ONCE ROCEPHIN IV CLONIDINE PO ADMITTED TO MED SURG MED SURG STATUS DCP;FROM HOME
--- NOTE | 2019-12-20 17:50 | NUR ---
SPEECH PATHOLOGY NOTE: INITIAL IMPRESSION: PATIENT PRESENTS WITH EFFICACY OF OROPHARYNGEAL PHASE OF SWALLOW INTACT. LOSS OF APPETITE/REFUSAL TO EAT, UNDERWEIGHT. RECOMMENDATIONS: 1. CONTINUE CURRENT DIET 2. MEALTIME SUPPLEMENTATION PER RD ORDER 3. SET UP ASSIST WITH MEALS 4. PILLS TOLERATED 5. NO FURTHER SKILLED ST SERVICES APPEAR TO BE NEEDED AT THIS TIME. THANK YOU FOR THIS REFERRAL.
--- NOTE | 2019-12-20 19:26 | NUR ---
NURSE HAND-OFF: Important Events on Shift:n/a Patient Status: stable Diet: cardiac mech soft Pending Orders: n/a Pending Results/Labs:n/a Pending MD notification:n/a Latest Vital Signs: Temperature 97.9 , Pulse 80 , B/P 157 /66 , Respiratory Rate 20 , O2 SAT 99 , Room Air, O2 Flow Rate . Vital Sign Comment: n/a Latest Agustin Fall Score: 75 Fall Risk: High Risk Safety Measures: Call light Within Reach, Bed Alarm Zone 1, Side Rails Side Rails x2, Bed position Low and Locked. Fall Precautions: Yellow Socks Yellow Gown Door Sign Patient Fall Education Report given to
--- NOTE | 2019-12-20 19:51 | NUR ---
NURSE NOTES: Patient brought in medications from home per family. Dropped off at pharmacy. Receipt tag left in patient's paper chart.
[2019-12-20] MEDS ORDERED: VITAMIN D250 MCG PO (20:07)
[2019-12-20] MEDS ORDERED: HYDRALAZINE HCL25 M1 ORAL (20:07)
[2019-12-20] MEDS ORDERED: HYDROCORTISONE 2.5% TP (20:07)
[2019-12-20] MEDS ORDERED: DONEPEZIL HCL5 MG ORAL (20:07)
[2019-12-20] MEDS: Donepezil 5mg Tab ORAL SCH (20:10)
[2019-12-20] MEDS: Atorvastatin 20mg tab ORAL SCH (20:10)
[2019-12-20] MEDS: cefTRIAXone 1 GM in D5W 55 ML IVPB SCH (20:12)
[2019-12-21 04:00] VITALS: BP 137/52
[2019-12-21] MEDS: metroNIDAZOLE 500mg tab ORAL SCH ×2 (05:25→15:08)
[2019-12-21 06:53] LABS: CALCIUM 8.1 MG/DL (8.5-10.1); CREATININE 0.9 MG/DL (0.55-1.30); POTASSIUM 3.5 MMOL/L (3.5-5.1)
[2019-12-21 06:58] LABS: BASOPHILS % (AUTO) 0.7 % (0.0-2.0); EOSINOPHILS % (AUTO) 1.8 % (0.0-3.0); HEMATOCRIT 29.1 % (37.0-47.0); HEMOGLOBIN 9.3 G/DL (12.0-16.0); LYMPHOCYTES % (AUTO) 16.9 % (20.0-45.0); MEAN CORPUSCULAR VOLUME 95 FL (80-99); MONOCYTES % (AUTO) 12.7 % (1.0-10.0); NEUTROPHILS % (AUTO) 67.8 % (45.0-75.0); PLATELET COUNT 360 K/UL (150-450); RED BLOOD COUNT 3.06 M/UL (4.20-5.40); RED CELL DISTRIBUTION WIDTH 12.6 % (11.6-14.8); WHITE BLOOD COUNT 4.5 K/UL (4.8-10.8)
--- NOTE | 2019-12-21 07:15 | NUR ---
HAND-OFF: Report given to THOMAS Rizvi.
--- NOTE | 2019-12-21 07:33 | NUR ---
NURSE NOTES:pt in the bed awake and alert eating breakfast; tolerating meals well. respiration is even and unlabored on room air. denies any pain and discomfort at this time. no acute distress noted at this time. call light is within reach, will follow today's plan of care.
[2019-12-21 08:00] VITALS: BP 158/57
--- NOTE | 2019-12-21 08:03 | General Progress Note ---
Subjective Allergies: Coded Allergies: INFLUENZA VIRUS VACCINES (Verified Allergy, Intermediate, 03/29/17) Pt. states, "I always end up getting the flu every time I take a flu vaccine." PENICILLINS (Verified Allergy, Unknown, 03/28/17) Subjective care noted Objective Last 24 Hour Vital Signs Date Time Temp Pulse Resp B/P (MAP) Pulse Ox O2 Delivery O2 Flow Rate FiO2 12/21/19 04:00 97.7 72 18 137/52 (80) 99 12/20/19 21:24 Room Air 12/20/19 20:26 74 18 96 Room Air 21 12/20/19 20:10 157/66 12/20/19 20:10 80 157/66 12/20/19 20:00 97.3 69 19 147/67 (93) 99 12/20/19 16:00 97.9 80 20 157/66 (96) 99 12/20/19 12:00 97.9 66 19 152/70 (97) 99 12/20/19 09:09 149/62 12/20/19 09:09 67 149/62 12/20/19 09:08 149/62 12/20/19 09:08 67 149/62 12/20/19 09:00 Room Air Intake and Output 12/20/19 12/21/19 19:00 07:00 Intake Total 240 ml Balance 240 ml Intake Oral 240 ml Laboratory Tests 12/21/19 05:15: White Blood Count 4.5L, Red Blood Count 3.06L, Hemoglobin 9.3L, Hematocrit 29.1L , Mean Corpuscular Volume 95, Mean Corpuscular Hemoglobin 30.5, Mean Corpuscular Hemoglobin Concent 32.1, Red Cell Distribution Width 12.6, Platelet Count 360, Mean Platelet Volume 4.9L, Neutrophils (%) (Auto) 67.8, Lymphocytes (%) (Auto) 16.9L, Monocytes (%) (Auto) 12.7H, Eosinophils (%) (Auto) 1.8, Basophils (%) (Auto) 0.7, Sodium Level 132L, Potassium Level 3.5, Chloride Level 99, Carbon Dioxide Level 28, Anion Gap 6, Blood Urea Nitrogen 14, Creatinine 0.9, Estimat Glomerular Filtration Rate 59.2, Glucose Level 91, Calcium Level 8.1L Height (Feet): 4 Height (Inches): 10.00 Weight (Pounds): 87 Objective WDWN NAD clear breath sounds bilaterally without rhonchi or wheeze [id number] without MRG NABS nontender no HSM no CCE nonfocal Assessment/Plan Assessment/Plan: Impression: Diarrhea with constipation Back pain Compression fracture of L2 lumbar vertebra Recent UTI Hypertension Previous [place] Dementia Plan - Continue IV Antibiotics - Analgesia - Stool CDiff - GEOTHERMAL OPERATIONS MANAGER Medications - PPX - O2 PRN - PRN HH- O2 PRN - Monitor labs - dc planning impression, plan, and exam edited and reviewed in detail care discussed with Oswald Ordonez MD Dec 21, 2019 08:03
[2019-12-21] MEDS: Carvedilol 6.25mg Tab ORAL SCH (08:37)
[2019-12-21 12:00] VITALS: BP 124/54
[2019-12-21 16:00] VITALS: BP_SYST 165; BP_SYST 166; BP_DIAS 75
--- NOTE | 2019-12-21 16:16 | NUR ---
PROTECTION MANAGER NOTE SW met w/ pt and evaluated home safety. Pt presents as A&O4x and monolingual [place]ican. Davida #[id number] assisted w/ interpretation. Pt resides w/ her sister and nephew at [address] [place] [address]. Pt uses a walker and reports being independent w/ ADLs and IADLs. Per pt, there are grab bars in the bathroom that she could use. PT does not have a caregiver. Pt shares that she receives sufficient support from her family. Pt plans to return home upon DC. This SW believes pt may be safe to return home upon DC. PT does not share any social media content specialist concern/needs at this time.
[2019-12-21 16:17] VITALS: BP 165/75
--- NOTE | 2019-12-21 18:34 | NUR ---
NURSE HAND-OFF: Important Events on Shift:NOTED ELEVATED BP X1 Patient Status: STABLE Diet: CARDIAC MECHANICAL SOFT Pending Orders: N/A Pending Results/Labs:N/A Pending MD notification:N/A Latest Vital Signs: Temperature 97.5 , Pulse 65 , B/P 165 /75 , Respiratory Rate 18 , O2 SAT 98 , Room Air, O2 Flow Rate . Vital Sign Comment: STABLE Latest Agustin Fall Score: 75 Fall Risk: High Risk Safety Measures: Call light Within Reach, Bed Alarm Zone 1, Side Rails Side Rails x2, Bed position Low and Locked. Fall Precautions: Yellow Socks Yellow Gown Door Sign Patient Fall Education Report given to []. Addendum: 12/21/19 at 1923 by Dmitri Marshall RN HAND-OFF: received discharge order towards the end of shift. Report given to
--- NOTE | 2019-12-21 18:37 | NUR ---
INSURANCE CLINICALS FAXED TO CLINICALS FAXED TO [facility] P:[phone] F:[phone]
--- NOTE | 2019-12-21 20:04 | NUR ---
NURSE NOTES: Patient discharged to home. Son Ron picked patient up. Medications returned to son from pharmacy. IV access discontinued. Belongings accounted for. Hospital bracelet taken off. Patient discharged via private vehicle.
--- NOTE | 2019-12-22 11:36 | NUR ---
INSURANCE [facility] P:[phone] F:[phone]
--- NOTE | 2019-12-23 13:06 | Discharge Summary ---
Discharge Summary Discharge Summary _ DATE OF ADMISSION: 12/19/2019 DATE OF DISCHARGE: 12/21/2019 DISCHARGED BY: Dr. Carbajal REASON FOR ADMISSION: 89 years old female with past medical history of hypertension, asthma, coronary artery disease , status post [place] in June 2019, dementia presented to emergency department complaining of fall last week ago. Patient reported low back pain and hip pain. Patient was able to ambulate but had significant lower back pain with movement. No other injuries were reported. No fever or chills. Patient also complained of diarrhea. No abdominal pain , no nausea or vomiting. Upon evaluation vital signs were stable . Laboratory work-up revealed no leukocytosis, hemoglobin 9.5,, hematocrit 28.6 platelet count 345. Urinalysis revealed +2 protein, +3 leukocyte esterase, borderline pyuria and few bacteria. Sodium 131, chloride 96. BUN 17, creatinine 0.8. Glucose 99. Stable LFT. Albumin 3.0. Lipase 102. Abdominal x-ray revealed diffuse constipation with large amount of stool within the rectum and colon. L2 compression deformity, which may represent subacute injury. Lumbar spine x-ray revealed compression deformity of L2 , which may represent subacute injury. X-ray of the left hip and pelvis showed no acute fracture or dislocation. Large amount of stool within the colon noted. Patient received in emergency department analgesic , empiric antibiotic for possible UTI and admitted for further management. HOSPITAL COURSE: Patient admitted to medical surgical floor. Pain management was addressed as needed Fall precautions maintained. Patient was working with a physical therapist. Patient was on empiric antibiotic for UTI. Supplemental oxygen was on board as needed to keep pulse oximetry above 92% . Pulse oximetry remained stable on room air. Pulmonary toilet was on standby as needed. Bowel regimen instituted. Blood pressure was managed with current regimen of multiple antihypertensive medications including ARB, CCB and beta-chema. Additional antihypertensive were on board as needed for blood pressure spikes. Antiplatelet therapy with Plavix , long-acting nitrite and statin continued Diet texture provided as per speech therapist recommendation with aspiration precautions after bedside swallow evaluation was completed. Patient had constipation with seeping through diarrhea. Bowel regimen optimized , diarrhea stopped. Supportive care provided. Patient clinically stabilized and was ready for discharge home FINAL DIAGNOSES: Back pain Compression fracture of L2 lumbar vertebra s/p fall Constipation with diarrhea Probably UTI Hypertension History of [place] Dementia DISCHARGE MEDICATIONS: See Medication Reconciliation list. DISCHARGE INSTRUCTIONS: Patient was discharged home. Follow-up with a primary care provider in 1 week. I have been assigned to dictate discharge summary for this account. I was not involved in the patient's management. Tiffany Ken NP Dec 23, 2019 13:06
--- NOTE | 2019-12-23 16:30 | NUR ---
INSURANCE DC SUMMARY/ INSTRUCTIONS/ [facility]ED [facility] P:[phone] [phone]
== END 2019-12-21 19:50 | disposition home or self-care (01) | DRG 690 ==
LOC: EMR 12:25 → 4E 14:41 → OBSVTOIN 14:41 → EDBEDREQ 15:20 → 4E 18:59
DX: N39.0 Urinary tract infection, site not specified (principal); M48.56XA Collapsed vertebra, not elsewhere classified, lumbar region, initial encounter for fracture; R19.7 Diarrhea, unspecified; I10 Essential (primary) hypertension; F03.90 Unspecified dementia, unspecified severity, without behavioral disturbance, psychotic disturbance, mood disturbance, and anxiety; Z88.0 Allergy status to penicillin; Z88.7 Allergy status to serum and vaccine; I25.2 Old myocardial infarction
CPT/HCPCS: 36415; 72020; 73521; 74019; 80048; 80053; 81003; 83690; 85025; 94664; 96365; 96375; 99285; J2405